=== PATIENT | female | born 1935 | race Caucasian/White ===

== ENCOUNTER → 2016-10-29 | Outpatient (CLI) | payer OTHER ==
[~2016-10-29] MED LIST: ASPI81TA28 PO; ATOR-24 PO; CALC-393 PO; CALCTAB5 PO; CHOL100010 PO; CHOL1CAP57 PO; CINN1CAP2 PO; DOCU-94 PO; FLAX100024 PO; GARL400T4 PO; LABE200T24 PO; LBT100 PO; LISI40TA PO; LORA10TA44 PO; LORA10TA5 PO; LPT40 PO; LSN40 PO; MULTTAB PO; OMEG10007 PO; OXYC1TAB3 PO; RANI150T2 PO; SENN-61 PO; TYLOTC500 PO; ULT/50 PO; VNTHFA/IN INH; ZNTT/150 PO
--- NOTE | 2016-10-29 14:23 | DIAGNOSTIC IMAGING REPORT ---
RIGHT HIP UNILATERAL 2 VIEWS CLINICAL HISTORY: M54.16 Lumbar [id number] Right pain COMPARISON: None. DISCUSSION: Mild degenerative change right hip joint space. No evidence for acetabular protrusion. No evidence for fracture or dislocation. There is no evidence for soft tissue swelling. IMPRESSION: Mild degenerative change. No acute process. Electronically signed by: Horacio Madrid M.D. 10/29/2016 2:21 PM Dictated Date/Time: 10/29/2016 2:21 PM
--- NOTE | 2016-10-29 15:04 | DIAGNOSTIC IMAGING REPORT ---
L-SPINE MIN 4 VIEWS ROUTINE CLINICAL HISTORY: Lumbar radiculopathy. COMPARISON: None FINDINGS: There is 4 mm anterolisthesis of L4 and L5. Vertebral body heights are maintained. There is no acute fracture. There is mild multilevel disc space narrowing and osteophytosis with moderate multilevel facet arthrosis. IMPRESSION: 1. No acute lumbar spine fracture. 2. Grade I anterolisthesis of L4 and L5 likely due to facet arthrosis. 2. Mild multilevel degenerative disc disease and moderate to severe multilevel facet arthrosis. Electronically signed by: Jefe Carvalho M.D. 10/29/2016 3:02 PM Dictated Date/Time: 10/29/2016 3:01 PM
== END | disposition home or self-care (01) ==
LOC: C.LABBC 13:39
PROVIDERS: ATTEND Internal Medicine Geriatric Medicine
DX: M54.16 Radiculopathy, lumbar region (principal); M53.86 Other specified dorsopathies, lumbar region

== ENCOUNTER 2017-01-25 21:07 | Emergency (ER) | payer OTHER ==
[~2017-01-25] VITALS: Ht 162.6 cm; Wt 89.0 kg
[~2017-01-25 21:07] MED LIST changes: -ASPI81TA28 PO; -CALC-393 PO; -CHOL1CAP57 PO; -DOCU-94 PO; -LBT100 PO; -LORA10TA5 PO; -LPT40 PO; -LSN40 PO; -OXYC1TAB3 PO; -RANI150T2 PO; -SENN-61 PO; -ULT/50 PO; -VNTHFA/IN INH
[2017-01-25 21:09] VITALS: TEMP 36.9; Ht 162.6 cm; Wt 89.0 kg
--- NOTE | 2017-01-25 22:04 | EMERGENCY ROOM VISIT NOTE ---
History Report prepared by Reyna: Pio Lora Under the Supervision of: Dr. Ritesh Godinez M.D. First contact with patient: 21:47 Chief Complaint: LEG PAIN,LEG INJURY Stated Complaint: PAIN IN RT LEG, CAN'T WALK History of Present Illness The patient is a 81 year old female who presents to the Emergency Room with complaints of right leg pain that started earlier today. She rates her pain as a 7/10 in severity. The patient states that her pain is located behind her knee and down her leg. She states that she was walking and accidentally twisted her ankle outward. The patient states that since the incident she has been experiencing right knee pain. She admits that she took Tylenol for the pain. The patient states that her knee pain is worsened with bending and walking. She admits to a history of an aneurysm. The patient denies any ankle pain. Source of History: patient Onset: today Position: leg (right), knee (right) Symptom Intensity: 7/10 Timing: constant Modifying Factors (Worsening): other (walking, bending knee) Modifying Factors (Relieving): tylenol Review of Systems See HPI for pertinent positives & negatives. A total of 10 systems reviewed and were otherwise negative. Past Medical & Surgical Medical Problems: (1) Dissecting aneurysm of thoracic aorta, Squire type B Family History Patient reports no known family medical history. Social History Smoking Status: Never Smoker Alcohol Use: none Housing Status: lives with family Occupation Status: retired Current/Historical Medications Scheduled Aspirin (Aspirin Ec), 81 MG PO DAILY Atorvastatin (Atorvastatin Calcium), 40 MG PO DAILY Calcium Carbonate (Calcium), 600 MG PO DAILY Cholecalciferol (Vitamin D3), 1,000 INTER.UNIT PO DAILY Docusate Sodium (Colace), 1 CAP PO BID Labetalol HCl (Labetalol HCl), 200 MG PO BID Lisinopril (Lisinopril), 40 MG PO DAILY Loratadine (Claritin), 10 MG PO DAILY Multivitamins/Minerals (Mvi With Minerals), 1 TAB PO DAILY Ranitidine HCl (Ranitidine HCl), 150 MG PO BID Senna (Senokot), 1 TAB PO HS Scheduled PRN Acetaminophen (Tylenol), 1,000 MG PO TID PRN for Pain or Fever Albuterol Hfa (Ventolin Hfa), 1-2 PUFFS INH Q4-6HRS PRN for SOB/Wheezing Oxycodone Immediate Rel Tab (Roxicodone Ir), 1-2 TAB PO Q4H PRN for Severe Pain Tramadol Hcl (Ultram), 50 MG PO DAILY PRN for Pain Allergies Coded Allergies: Clarithromycin (Verified Allergy, Unknown, UNKNOWN, 08/09/14) Hydrocodone (Verified Allergy, Unknown, UNKNOWN, 08/09/14) Meperidine (Verified Allergy, Unknown, UNKNOWN, 08/09/14) Tuberculin (Verified Allergy, Unknown, UNKNOWN, 08/02/14) Morphine (Unverified Adverse Reaction, Unknown, violent vomiting, 08/09/14) Physical Exam Vital Signs Date Time Temp Pulse Resp B/P (MAP) Pulse Ox O2 Delivery O2 Flow Rate FiO2 01/25/17 23:23 78 16 146/78 98 01/25/17 21:09 36.9 66 18 168/87 95 Room Air Physical Exam GENERAL: Patient is a healthy-appearing well-nourished 75 year old female HEAD: Normocephalic atraumatic EYES: Ocular movements intact pupils equal and react to light OROPHARYNX mucous membranes are moist no exudates present no erythema or edema present NECK: Supple no nuchal rigidity CHEST: Good equal expansion LUNGS: Clear and equal to auscultation CARDIAC: Normal S1 and S2 ABDOMEN: Soft nontender no guarding BACK: No CVA tenderness EXTREMITIES: No pain upon palpation normal muscle strength in all groups no clubbing cyanosis or edema NEURO: Patient is following commands and answering questions appropriately. Alert and oriented x3 Cranial Nerves 2-12 grossly intact Medical Decision & Procedures ER Provider Diagnostic Interpretation: Radiology results as stated below per my review and radiologist interpretation: X-ray results as stated below per interpretation by me and the radiologist: R KNEE 1 OR 2 VIEWS ROUTINE CLINICAL HISTORY: Pt c/o rt knee pain pain COMPARISON: None. DISCUSSION: The bones and joint spaces appear intact. There is no evidence of fracture, dislocation or bony disease. Moderate generalized degenerative change. No significant joint effusion. Moderate osteophytic change. IMPRESSION: Degenerative change. No acute process. The above report was generated using voice recognition software. It may contain grammatical, syntax or spelling errors. Electronically signed by: Horacio Madrid M.D. 01/25/2017 10:36 PM Dictated Date/Time: 01/25/2017 10:35 PM R VENOUS DOPP LOWER EXT UNILAT CLINICAL HISTORY: Pt c/o RLE swelling pain. Edema. TECHNIQUE: Venous Doppler COMPARISON STUDY: None FINDINGS: Normal study IMPRESSION: Normal study The above report was generated using voice recognition software. It may contain grammatical, syntax or spelling errors. Electronically signed by: Horacio Madrid M.D. 01/25/2017 10:54 PM Dictated Date/Time: 01/25/2017 10:54 PM Medications Administered Medications (Trade) Dose Ordered Sig/Lauro Route Start Time Stop Time Status Last Admin Dose Admin Oxycodone HCl (Roxicodone Immediate Rel 5MG Home Pack) 1 homepack UD ONCE PO 01/25/17 23:15 01/25/17 23:16 DC 01/25/17 23:15 1 HOMEPACK ED Course 2156: Past medical records reviewed. The patient was evaluated in room D06. A complete history and physical examination was performed. Medical Decision The differential diagnosis includes etiologies such as: fracture, dislocation, subluxation. This is a 81-year-old female who presents emergency department complaining of left knee pain. The patient has a normal physical examination. The patient is concerned about a blood clot however ultrasound does not show any evidence of a blood clot. I believe based on her exam that she most likely has a meniscus tear. I stressed the need to use the patient's walker and to follow-up with orthopedics. The patient was given oxycodone. Repeat examination revealed improvement patient's symptoms. Medication Reconcilliation Current Medication List: was personally reviewed by me Blood Pressure Screening Patient's blood pressure: Elevated blood pressure Blood pressure disposition: Referred to PCP Impression Primary Impression: Ankle pain, left Scribe Attestation The scribe's documentation has been prepared under my direction and personally reviewed by me in its entirety. I confirm that the note above accurately reflects all work, treatment, procedures, and medical decision making performed by me. Departure Information Dispostion Home / Self-Care Prescriptions Docusate Sodium (COLACE) 100 Mg Cap 1 CAP PO BID for 10 Days, #20 CAP Prov: Ritesh Godinez MD 01/25/17 Senna (Senokot) 8.6 Mg Tab 1 TAB PO HS for 10 Days, #10 TAB Prov: Ritesh Godinez MD 01/25/17 Oxycodone Immediate Rel Tab (ROXICODONE IR) 5 Mg Tab 1-2 TAB PO Q4H Y for Severe Pain, #14 TAB Prov: Ritesh Godinez MD 01/25/17 Referrals Mario Nugent M.D. (PCP) Patient Instructions My [facility] Problem Qualifiers Primary Impression: Ankle pain, left Chronicity: acute Qualified Codes: M25.572 - Pain in left ankle and joints of left foot
[2017-01-25] MEDS ORDERED: RANI150T2 PO (22:22)
[2017-01-25] MEDS ORDERED: LSN40 PO (22:22)
[2017-01-25] MEDS ORDERED: ULT/50 PO (22:22)
[2017-01-25] MEDS ORDERED: LPT40 PO (22:22)
[2017-01-25] MEDS ORDERED: LORA10TA5 PO (22:22)
[2017-01-25] MEDS ORDERED: VNTHFA/IN INH (22:22)
[2017-01-25] MEDS ORDERED: LBT100 PO (22:22)
[2017-01-25] MEDS ORDERED: CHOL1CAP57 PO (22:24)
[2017-01-25] MEDS ORDERED: CALC-393 PO (22:24)
[2017-01-25] MEDS ORDERED: ASPI81TA28 PO (22:25)
--- NOTE | 2017-01-25 22:37 | DIAGNOSTIC IMAGING REPORT ---
R KNEE 1 OR 2 VIEWS ROUTINE CLINICAL HISTORY: Pt c/o rt knee pain pain COMPARISON: None. DISCUSSION: The bones and joint spaces appear intact. There is no evidence of fracture, dislocation or bony disease. Moderate generalized degenerative change. No significant joint effusion. Moderate osteophytic change. IMPRESSION: Degenerative change. No acute process. The above report was generated using voice recognition software. It may contain grammatical, syntax or spelling errors. Electronically signed by: Horacio Madrid M.D. 01/25/2017 10:36 PM Dictated Date/Time: 01/25/2017 10:35 PM
--- NOTE | 2017-01-25 22:56 | DIAGNOSTIC IMAGING REPORT ---
R VENOUS DOPP LOWER EXT UNILAT CLINICAL HISTORY: Pt c/o RLE swelling pain. Edema. TECHNIQUE: Venous Doppler COMPARISON STUDY: None FINDINGS: Normal study IMPRESSION: Normal study The above report was generated using voice recognition software. It may contain grammatical, syntax or spelling errors. Electronically signed by: Horacio Madrid M.D. 01/25/2017 10:54 PM Dictated Date/Time: 01/25/2017 10:54 PM
[2017-01-25] MEDS ORDERED: OXYC1TAB3 PO (23:09)
[2017-01-25] MEDS ORDERED: SENN-61 PO (23:12)
[2017-01-25] MEDS ORDERED: DOCU-94 PO (23:12)
[2017-01-25] MEDS ORDERED: OXYCODONE IR HOME PACK PO ONE (23:15)
[2017-01-25 23:23] VITALS: BP 146/78; PULSE 78; O2SAT 98
== END 2017-01-25 23:23 | disposition home or self-care (01) ==
LOC: C.EDB 21:08 → C.EDA 23:23
DX: M25.572 Pain in left ankle and joints of left foot (principal); X50.1XXA Overexertion from prolonged static or awkward postures, initial encounter; Y92.9 Unspecified place or not applicable; I71.2 Thoracic aortic aneurysm, without rupture; Z79.82 Long term (current) use of aspirin; Z79.899 Other long term (current) drug therapy

== ENCOUNTER 2021-12-25 16:56 | Inpatient (IN) ==
[2021-12-25 18:06] LABS: Basophils # (auto) 0.08 K/uL (0-0.2); Basophils % (auto) 0.8 %; Eosinophils # (auto) 0.31 K/uL (0-0.50); Hematocrit (blood only) 41.5 % (34.1-44.9); Hemoglobin 13.6 g/dl (12.0-16.0); Lymphocytes # (auto) 2.39 K/uL (1.2-3.4); Lymphocytes % (auto) 23.1 %; Mean Corpuscular Hemoglobin 33.1 pg (25.0-34.0); Mean Corpuscular Hgb Conc 32.8 g/dL (32.0-36.0); Mean Platelet Volume 9.4 fL (9.4-12.3); Monocytes # (auto) 0.75 K/uL (0.24-0.82); Monocytes % (auto) 7.2 %; Neutrophils # (auto) 6.72 K/uL (1.4-6.5); Neutrophils % (auto) 64.9 %; Platelet Count 384 K/uL (130-400); RDW Standard Deviation 48.3 fL (36.4-46.3); Red Blood Count 4.11 M/uL (3.93-5.22); White Blood Count 10.35 K/ul (4.8-10.8)
--- NOTE | 2021-12-25 18:11 | XRay Report ---
XR chest 1V not portable HISTORY: Productive cough. Shortness of breath. COMPARISON: None. FINDINGS: No focal lung consolidations to suggest pneumonia. No evidence for pulmonary edema. The hea rt remains mildly enlarged. No pleural effusions. No pneumothorax. There is a calcified and mildly to rtuous thoracic aorta, unchanged. IMPRESSION: No significant change compared to the prior study. No acute process. ACT 112: Negative or not required by law. Electronically signed by: Rolo Gonzalez M.D. 12/25/2021 6:10 PM
[2021-12-25 18:18] LABS: Partial Thromboplastin Ratio 0.9; Prothrombin Time 10.9 Seconds (9.0-12.0)
[2021-12-25 18:35] LABS: Troponin I High Sensitivity 5.9 pg/ml (0-14)
[2021-12-25 18:41] LABS: Alanine Aminotransferase 12 U/L (7-52); Albumin Globulin Ratio 1.2 (0.9-2); Albumin Level 4.2 gm/dl (3.4-5.0); Alkaline Phosphatase 98 U/L (34-104); Anion Gap 12 (3-11); Aspartate Aminotransferase 13 U/L (13-39); BUN Creatinine Ratio 12.3 (10-20); Bilirubin,Total 1.2 mg/dl (0.2-1.0); Blood Urea Nitrogen 16 mg/dl (6-23); Calcium 10.6 mg/dl (8.5-10.1); Carbon Dioxide 27 mmol/L (21-32); Chloride 100 mmol/L (98-107); Est GFR (African American) 43.6 ml/min; Est GFR (Non-African American) 37.6 ml/min; Globulin 3.4 gm/dl (2.5-4.0); Glucose 180 mg/dl (70-99(Fasting)); Magnesium 1.6 mg/dl (1.7-2.4); Potassium 4.6 mmol/L (3.5-5.1); Sodium 139 mmol/L (136-145); Total Protein 7.6 gm/dl (6.0-8.3)
[2021-12-25] MEDS ORDERED: OPTIRAY 300 500mL IV ONE (20:41)
--- NOTE | 2021-12-25 21:40 | Emergency Department Note ---
History of Present Illness General Chief complaint: Shortness of Breath/Dyspnea Stated complaint: SOB, REF BY DOC Time Seen by Provider: 12/25/21 19:40 Source: patient Mode of arrival: ambulatory Limitations: no limitations History of Present Illness This patient is a 86-year-old female who is been short of breath for about 2 days. Is primarily dyspnea on exertion she is okay when she sits this also hurts when she moves although that is been chronic she has pain in her hands and right lower extremity mostly as well as the feet. She been seen by her doctor for this. She has had a cough with some darkish yellow phlegm at times. No chest pain or fever or chills. she did have COVID back in the end of October. She did not really have many symptoms with this she says. Denies abdominal pain. no chest pain. no palpitations. no pleurisy. no fever or chills no nausea vomiting. No fall or trauma, no blood or melena in her stool. no urinary symptoms. Home Medications Medication Instructions Recorded Confirmed Type acetaminophen 500 mg tablet 1,000 mg PO TID PRN fever #30 tabs 02/17/19 12/25/21 Rx (Tylenol Extra Strength) aspirin 81 mg tablet,delayed 81 mg PO DAILY #30 tabs 02/17/19 12/25/21 Rx release (Adult Low Dose Aspirin) calcium carbonate 600 mg-vitamin 1 tab PO DAILY #30 tabs 02/17/19 12/25/21 Rx D3 5 mcg (200 unit) tablet (Calcium 600 + D(3)) loratadine 10 mg tablet 10 mg PO DAILY #30 tabs 02/17/19 12/25/21 Rx multivitamin with iron 1 tab PO DAILY #30 tabs 02/17/19 12/25/21 Rx cholecalciferol (vitamin D3) 25 2,000 unit PO DAILY #60 caps 09/12/20 12/25/21 Rx mcg (1,000 unit) capsule fluticasone propionate 50 2 spray intranasal DAILY #16 grams 12/25/20 12/25/21 Rx mcg/actuation nasal spray,suspension (Flonase Allergy Relief) albuterol sulfate 90 mcg/actuation See Rx Instructions inhalation 03/25/21 12/25/21 Rx aerosol inhaler (Ventolin HFA) .COMPLEX PRN shortness of breath or wheezing #8.5 grams gabapentin 100 mg capsule 200 mg PO TID PRN pain #540 caps 06/25/21 12/25/21 Rx montelukast 10 mg tablet 10 mg PO DAILY #90 tabs 06/25/21 12/25/21 Rx (Singulair) furosemide 20 mg tablet (Lasix) 20 mg PO DAILY #90 tabs 07/30/21 12/25/21 Rx atorvastatin 40 mg tablet 40 mg PO DAILY #90 tabs 08/23/21 12/25/21 Rx lisinopril 40 mg tablet 40 mg PO DAILY #90 tabs 11/25/21 12/25/21 Rx labetalol 200 mg tablet 400 mg PO BID 90 days #360 tabs 12/03/21 12/25/21 Rx tramadol 50 mg tablet 50 mg PO Q8H PRN pain #30 tabs 12/03/21 12/25/21 Rx diclofenac sodium 1 % topical gel 2 g topical QID PRN Pain 12/25/21 12/25/21 History Allergies Allergy/AdvReac Type Severity Reaction Status Date / Time clarithromycin Allergy Unknown UNKNOWN Verified 12/25/21 15:26 hydrocodone Allergy Unknown UNKNOWN Verified 12/25/21 15:26 meperidine Allergy Unknown UNKNOWN Verified 12/25/21 15:26 tuberculin, purified protein Allergy Unknown UNKNOWN Verified 12/25/21 15:26 deriva fluticasone furoate Allergy dizziness, Verified 12/25/21 15:26 [From Breo Ellipta] upset stomach vilanterol Allergy dizziness, Verified 12/25/21 15:26 [From Breo Ellipta] upset stomach morphine AdvReac Unknown violent Unverified 12/25/21 15:26 vomiting Past Med/Surg History Medical History Anxiety Breast cancer Cataracts, bilateral Chronic dyspnea COVID-19 virus infection Dissecting aortic aneurysm, 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) Dry eye syndrome of both lacrimal glands Dyslipidemia Dyspnea on exertion Ectasia of artery Gastroesophageal reflux disease History of actinic keratosis History of 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) History of fracture of radius History of left breast cancer (1994) s/p L mastectomy, no further treatment History of right breast cancer (08/2014) s/p R mastectomy Hypertension Lower extremity edema Lumbar radiculopathy Osteoarthritis Physical deconditioning Severe needle phobia Sleep apnea Xerotic eczema Surgical History H/O wrist surgery S/P cataract surgery S/P left mastectomy (1994) S/P right mastectomy (08/09/14) Family History Daughter Hypertension Mother COPD (chronic obstructive pulmonary disease) Sister Breast cancer Father COPD (chronic obstructive pulmonary disease) Myocardial infarction Sister Uterine cancer Other Clotting disorder Denies family history of Ovarian cancer Prostate cancer Colorectal cancer Social History Smoking Status: Never smoker Second Hand Exposure: No; Hx Alcohol Use: No Hx Substance Use: No Preferred Language: Lebanese Communication Ability: Effective Visual Impairment: Partially Limited Hearing Ability: Normal Marker Delivery Required: No Beliefs That Will Affect Care: None marital status: / Current Living Situation: Alone Current Living Situation Comment: daughter lives locally current occupational status: retired current occupation: [employer], 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 caffeine: Yes during the past year weight has: remained stable Dental Care, Regularly: No Physical Activity Frequency: Does not Exercise Seatbelt Use: always Sunscreen Use: No Review of Systems A total of 10 systems reviewed and were otherwise negative Physical Exam Vital Signs Vital Signs - 24 hr 12/25/21 16:59 12/25/21 20:10 12/25/21 20:11 Temperature 36.6 C Temperature Source Temporal Artery Scan Pulse Rate 88 Pulse Rate [Finger] 70 Respiratory Rate 19 17 Respiratory Effort / Characteristics Non-Labored Spontaneous Non-Labored Spontaneous Respiratory Depth Normal Normal Blood Pressure 124/65 Blood Pressure [Right Arm] 129/71 Blood Pressure Mean 84 Blood Pressure Mean [Right Arm] 90 Blood Pressure Position [Right Arm] Sitting Pulse Oximetry 99 92 92 Oxygen Delivery Method Room Air Room Air Room Air Sepsis Recent Fever Within 48 Hours No Sepsis New/Unexplained Change in Mental Status N/A Sepsis Action Taken by Nursing No Action Required 12/25/21 20:11 12/25/21 22:18 12/26/21 00:06 Temperature Temperature Source Pulse Rate 70 Pulse Rate [Finger] 70 80 Respiratory Rate 17 17 18 Respiratory Effort / Characteristics Non-Labored Spontaneous Non-Labored Spontaneous Respiratory Depth Normal Normal Blood Pressure Blood Pressure [Right Arm] 130/73 146/96 H Blood Pressure Mean Blood Pressure Mean [Right Arm] 92 112 Blood Pressure Position [Right Arm] Lying Sitting Pulse Oximetry 92 91 93 Oxygen Delivery Method Room Air Room Air Room Air Sepsis Recent Fever Within 48 Hours Sepsis New/Unexplained Change in Mental Status Sepsis Action Taken by Nursing General: Well developed well nourished older female who appears in no acute distress, breathing comfortably on room air. Normal speech without increased work of breathing HEENT: Normal cephalic atraumatic. Pupils are equal round and reactive to light. Extraocular movements are intact. Oropharynx is pink with moist mucous membranes. No swelling of the mouth lips or tongue. Neck: Supple with a midline trachea. No meningeal signs or stiffness, no JVD or bruits. No Stridor. Chest: Clear to auscultation bilaterally. No wheezes or rhonchi. No increased work of breathing. Heart: Regular rate and rhythm without murmurs or gallops. Abdomen: Soft nontender, nondistended without rebound guarding or rigidity. Extremities: No cyanosis clubbing trace bilateral pedal edema. No calf tenderness or assymetry Spine/Back. Non tender to palpation. No CVA tenderness Skin: Good turgor without rashes. Neurologic exam: Cranial nerves two through 12 are intact. Motor and sensation are intact and symmetrical throughout. Course Administered Medications Heparin Sodium/Dextrose (Heparin Sodium/Dextrose) 25,000 units in 500 mls @ 24 mls/hr IV .[id number] [facility]; Protocol Stop: 01/24/22 23:14 Last Admin: 12/25/21 23:57 Dose: 1,200 units/hr, 24 mls/hr Documented By: CC Co-signed By: ERNESTO Discontinued Medications Heparin Sodium (Porcine) (Heparin Sod (Porcine) 1000 Unit/Ml) 1 units IV NOW ONE Stop: 12/25/21 23:11 Last Admin: 12/25/21 23:55 Dose: 5,000 units Documented By: CC Co-signed By: ERNESTO Lorazepam (Lorazepam 1 Mg Tab) 1 mg PO NOW STA Stop: 12/25/21 23:33 Last Admin: 12/25/21 23:40 Dose: 1 mg Documented By: CC Critical Care Time Critical Care Time: Yes Total Critical Care Time: 30 Due to the patient's shortness of breathwit subsequent pulmonary embolism diagn osis,need for IV heparin bolus and drip, consultations reassessment and discussions with the patient and family, I have personally spent greater than 30 minutes of critical care time in the direct management of this patient. This includes bedside care, interpretation of diagnostic studies, and testing, discussion with consultants, patient, and family members, and other required patient management activities. This 30 minutes is in excess of all separately billable procedures. Medical Decision Making Differential Diagnosis CHF, COPD, COVID, electrolyte or metabolic abnormality, pneumonia, PE, aortic pathology, bronchitis, anxiety Medical Records Attestation: I reviewed the patient's medical records. Home Medications Current Medication List: was personally reviewed by me Laboratory Data Attestation: I reviewed the patient's lab results. Result diagrams: 12/25/21 17:45 12/25/21 17:45 Lab Results 12/25/21 12/25/21 12/25/21 Range/Units 17:45 17:45 17:45 WBC 10.35 (4.8-10.8) K/ul RBC 4.11 (3.93-5.22) M/uL Hgb 13.6 (12.0-16.0) g/dl Hct 41.5 (34.1-44.9) % MCV 101.0 H (80.0-100.0) fL MCH 33.1 (25.0-34.0) pg MCHC 32.8 (32.0-36.0) g/dL RDW Std Deviation 48.3 H (36.4-46.3) fL RDW Coeff of Subhash 13.0 (11.5-14.5) % Plt Count 384 (130-400) K/uL MPV 9.4 (9.4-12.3) fL Immature Gran % (Auto) 1.0 % Neut % (Auto) 64.9 % Lymph % (Auto) 23.1 % [place] % (Auto) 7.2 % Eos % (Auto) 3.0 % Baso % (Auto) 0.8 % Neut # (Auto) 6.72 H (1.4-6.5) K/uL Lymph # (Auto) 2.39 (1.2-3.4) K/uL [place] # (Auto) 0.75 (0.24-0.82) K/uL Eos # (Auto) 0.31 (0-0.50) K/uL Baso # (Auto) 0.08 (0-0.2) K/uL Immature Gran # (Auto) 0.10 H (0.00-0.02) K/uL ESR (0-30) mm/hr PT 10.9 (9.0-12.0) Seconds INR 1.0 (0.9-1.1) APTT 25.0 (21.0-31.0) Seconds PTT Ratio 0.9 Sodium 139 (136-145) mmol/L Potassium 4.6 (3.5-5.1) mmol/L Chloride 100 (98-107) mmol/L Carbon Dioxide 27 (21-32) mmol/L Anion Gap 12 H (3-11) BUN 16 (6-23) mg/dl Creatinine 1.30 H (0.6-1.2) mg/dl Est Cr Clr Drug Dosing Not Reportable Est GFR ( Amer) 43.6 ml/min Est GFR (Non-Af Amer) 37.6 ml/min BUN/Creatinine Ratio 12.3 (10-20) Glucose 180 H (70-99(Fasting)) mg/dl Uric Acid (2.6-7.2) mg/dl Calcium 10.6 H (8.5-10.1) mg/dl Magnesium 1.6 L (1.7-2.4) mg/dl Total Bilirubin 1.2 H (0.2-1.0) mg/dl AST 13 (13-39) U/L ALT 12 (7-52) U/L Alkaline Phosphatase 98 (34-104) U/L Troponin I High Sens 5.9 (0-14) pg/ml C-Reactive Protein (0-0.5) mg/dl B-Natriuretic Peptide (0-100) pg/ml Total Protein 7.6 (6.0-8.3) gm/dl Albumin 4.2 (3.4-5.0) gm/dl Globulin 3.4 (2.5-4.0) gm/dl Albumin/Globulin Ratio 1.2 (0.9-2) SARS-CoV-2, RNA, NAAT (NEGATIVE) 12/25/21 12/25/21 12/25/21 Range/Units 17:45 17:45 17:45 WBC (4.8-10.8) K/ul RBC (3.93-5.22) M/uL Hgb (12.0-16.0) g/dl Hct (34.1-44.9) % MCV (80.0-100.0) fL MCH (25.0-34.0) pg MCHC (32.0-36.0) g/dL RDW Std Deviation (36.4-46.3) fL RDW Coeff of Subhash (11.5-14.5) % Plt Count (130-400) K/uL MPV (9.4-12.3) fL Immature Gran % (Auto) % Neut % (Auto) % Lymph % (Auto) % [place] % (Auto) % Eos % (Auto) % Baso % (Auto) % Neut # (Auto) (1.4-6.5) K/uL Lymph # (Auto) (1.2-3.4) K/uL [place] # (Auto) (0.24-0.82) K/uL Eos # (Auto) (0-0.50) K/uL Baso # (Auto) (0-0.2) K/uL Immature Gran # (Auto) (0.00-0.02) K/uL ESR 48 H (0-30) mm/hr PT (9.0-12.0) Seconds INR (0.9-1.1) APTT (21.0-31.0) Seconds PTT Ratio Sodium (136-145) mmol/L Potassium (3.5-5.1) mmol/L Chloride (98-107) mmol/L Carbon Dioxide (21-32) mmol/L Anion Gap (3-11) BUN (6-23) mg/dl Creatinine (0.6-1.2) mg/dl Est Cr Clr Drug Dosing Est GFR ( Amer) ml/min Est GFR (Non-Af Amer) ml/min BUN/Creatinine Ratio (10-20) Glucose (70-99(Fasting)) mg/dl Uric Acid 9.3 H (2.6-7.2) mg/dl Calcium (8.5-10.1) mg/dl Magnesium (1.7-2.4) mg/dl Total Bilirubin (0.2-1.0) mg/dl AST (13-39) U/L ALT (7-52) U/L Alkaline Phosphatase (34-104) U/L Troponin I High Sens (0-14) pg/ml C-Reactive Protein 2.15 H (0-0.5) mg/dl B-Natriuretic Peptide 67 (0-100) pg/ml Total Protein (6.0-8.3) gm/dl Albumin (3.4-5.0) gm/dl Globulin (2.5-4.0) gm/dl Albumin/Globulin Ratio (0.9-2) SARS-CoV-2, RNA, NAAT (NEGATIVE) 12/25/21 Range/Units Unknown WBC (4.8-10.8) K/ul RBC (3.93-5.22) M/uL Hgb (12.0-16.0) g/dl Hct (34.1-44.9) % MCV (80.0-100.0) fL MCH (25.0-34.0) pg MCHC (32.0-36.0) g/dL RDW Std Deviation (36.4-46.3) fL RDW Coeff of Subhash (11.5-14.5) % Plt Count (130-400) K/uL MPV (9.4-12.3) fL Immature Gran % (Auto) % Neut % (Auto) % Lymph % (Auto) % [place] % (Auto) % Eos % (Auto) % Baso % (Auto) % Neut # (Auto) (1.4-6.5) K/uL Lymph # (Auto) (1.2-3.4) K/uL [place] # (Auto) (0.24-0.82) K/uL Eos # (Auto) (0-0.50) K/uL Baso # (Auto) (0-0.2) K/uL Immature Gran # (Auto) (0.00-0.02) K/uL ESR (0-30) mm/hr PT (9.0-12.0) Seconds INR (0.9-1.1) APTT (21.0-31.0) Seconds PTT Ratio Sodium (136-145) mmol/L Potassium (3.5-5.1) mmol/L Chloride (98-107) mmol/L Carbon Dioxide (21-32) mmol/L Anion Gap (3-11) BUN (6-23) mg/dl Creatinine (0.6-1.2) mg/dl Est Cr Clr Drug Dosing Est GFR ( Amer) ml/min Est GFR (Non-Af Amer) ml/min BUN/Creatinine Ratio (10-20) Glucose (70-99(Fasting)) mg/dl Uric Acid (2.6-7.2) mg/dl Calcium (8.5-10.1) mg/dl Magnesium (1.7-2.4) mg/dl Total Bilirubin (0.2-1.0) mg/dl AST (13-39) U/L ALT (7-52) U/L Alkaline Phosphatase (34-104) U/L Troponin I High Sens (0-14) pg/ml C-Reactive Protein (0-0.5) mg/dl B-Natriuretic Peptide (0-100) pg/ml Total Protein (6.0-8.3) gm/dl Albumin (3.4-5.0) gm/dl Globulin (2.5-4.0) gm/dl Albumin/Globulin Ratio (0.9-2) SARS-CoV-2, RNA, NAAT NEGATIVE (NEGATIVE) Imaging Data Attestation: I personally reviewed and interpreted this imaging study as follows: My Impression: X-rayno acute infiltrate, failure, pneumothorax seen Radiologist's Impression: Chest X-Ray 12/25/21 17:02 XR chest 1V not portable HISTORY: Productive cough. Shortness of breath. COMPARISON: None. FINDINGS: No focal lung consolidations to suggest pneumonia. No evidence for pulmonary edema. The heart remains mildly enlarged. No pleural effusions. No pneumothorax. There is a calcified and mildly tortuous thoracic aorta, unchanged. IMPRESSION: No significant change compared to the prior study. No acute process. ACT 112: Negative or not required by law. Electronically signed by: Rolo Gonzalez M.D. 12/25/2021 6:[address] angio of the chest as well as abdomen. Please refer to stat rad report. No aortic dissection. She did have right-sided pulmonary embolisms with a large clot burden with some strain on the right heart ECG Data Attestation: I personally reviewed and interpreted this ECG as follows: Indication: + SOB/dyspnea Rate (beats per minute): 75 Rhythm: + normal sinus ECG Intervals/blocks: + Normal QRS, + Normal QT and + Normal AL ECG [place]: + Left axis deviation ECG ST segments: + Normal ST segments ECG Findings: no PACs or no PVCs Comparison ECG Date: from (08/01/14) Change: no significant change MDM Narrative She comes in as described above. She was placed on a cardiac cath technician in room C3. She has had shortness of breath but mostly dyspnea on exertion she has stable vital signs and not hypoxemic here her lungs are clear she is in no distress. She had COVID 2 months ago and would possibly still test positive. Chest x-ray was clear and does not show congestive heart failure pneumonia or pneumothorax EKG is unremarkable. Troponin is unremarkable and her symptoms will be atypical for cardiac disease. She has no significant electrolyte or metabolic abnormalities acutely. She has no elevation of her white count or fever to suggest infection. I did do a CTA to evaluate her for PE given her recent COVID infection and also further look at her lungs and her aorta given her remote history of aortic dissection she has no back pain or chest pain to suggest acute aortic dissection. Her family talk to me at length as the patient is severely needle phobic and we did get an IV in her and asked if we could order labs that they have been trying to get for her arthritis/rheumatoid ar thritis. I told her I be happy to do this although rheumatology often orders additional labs but way beyond what we do in the ED I did order the basic labs and I told her that some of them we could do off of the blood we juan david and others may be needed a restick. She said that she does not want to have any resticks but would consent to having the ones done that we could already do with the blood that we have. Her inflammatory markers were mildly elevated. Her CTA showed a large clot burden with multiple PEs on the right side with some mild heart strain. Despite this she was hemodynamically stable and not hypoxemic. I talked to the patient at length and explained this. She had no contrai ndications for heparin she is had no recent surgery or blood in her stool or trauma. I discussed this with Dr. Lerner from admitting team she agrees with giving the IV heparin bolus and hourly heparin. The patient will need to be admitted for further treatment and evaluation. Continuous cardiac monitoring: Orders placed in EMR for continuous cardiac monitoring. Upon my interpretion, she was noted to be in normal sinus rhythm with a rate of 77 Impression & Plan Pulmonary embolism, [place] (dyspnea on exertion), History of COVID-19, Lab test negative for COVID-19 virus Discharge Plan Visit Data Chief Complaint: Shortness of Breath/Dyspnea Stated Complaint: SOB, REF BY DOC ED Provider: Vel Ellis Discharge Problem: Pulmonary embolism, [place] (dyspnea on exertion), History of COVID-19, Lab test negative for COVID-19 virus Forms Stand Alone Forms: My [facility] Prescriptions Prescriptions: No Action albuterol sulfate [Ventolin HFA] 90 mcg/actuation HFA aerosol inhaler See Rx Instructions inhalation .COMPLEX PRN (Reason: shortness of breath or wheezing) Qty: 8.5 3RF Dose Instruction: 1-2 inhalation EVERY 4-6 HOURS PRN; Rx Instructions: 1-2 inhalation EVERY 4-6 HOURS PRN; furosemide [Lasix] 20 mg tablet 20 mg PO DAILY Qty: 90 1RF atorvastatin 40 mg tablet 40 mg PO DAILY Qty: 90 1RF lisinopril 40 mg tablet 40 mg PO DAILY Qty: 90 1RF aspirin [Adult Low Dose Aspirin] 81 mg tablet,delayed release (DR/EC) 81 mg PO DAILY Qty: 30 2RF calcium carbonate-vitamin D3 [Calcium 600 + D(3)] 600 mg(1,500mg) -200 unit tablet 1 tab PO DAILY Qty: 30 0RF loratadine 10 mg tablet 10 mg PO DAILY Qty: 30 0RF multivitamin with iron tablet 1 tab PO DAILY Qty: 30 0RF acetaminophen [Tylenol Extra Strength] 500 mg tablet 1,000 mg PO TID PRN (Reason: fever) Qty: 30 0RF montelukast [Singulair] 10 mg tablet 10 mg PO DAILY Qty: 90 3RF gabapentin 100 mg capsule 200 mg PO TID PRN (Reason: pain) Qty: 540 1RF tramadol 50 mg tablet 50 mg PO Q8H PRN (Reason: pain) Qty: 30 0RF labetalol 200 mg tablet 400 mg PO BID 90 Days Qty: 360 1RF fluticasone propionate [Flonase Allergy Relief] 50 mcg/actuation spray,suspension 2 spray INTNAS DAILY Qty: 16 1RF Rx Instructions: administer into each nostril cholecalciferol (vitamin D3) 25 mcg (1,000 unit) capsule 2,000 unit PO DAILY Qty: 60 3RF diclofenac sodium 1 % gel 2 g topical QID PRN (Reason: Pain) Rx Instructions: apply to single elbow, wrist or hand; for hand includes palm/fingers/back of hand Referrals Referrals: Dalila Vitale DO [Primary Care Provider] -
[2021-12-25 21:55] LABS: C Reactive Protein 2.15 mg/dl (0-0.5); Uric Acid 9.3 mg/dl (2.6-7.2)
[2021-12-25] MEDS ORDERED: Heparin IV Adult Wt-Based Standard WITH Bolus Protocol IV STA (22:55)
[2021-12-25] MEDS ORDERED: HEPARIN SOD (PORCINE) 1000 UNIT/ML IV ONE (23:10)
[2021-12-25] MEDS ORDERED: HEPARIN SODIUM/DEXTROSE 25,000 UNITS/500 ML BAG IV SCH (23:15)
--- NOTE | 2021-12-25 23:17 | History & Physical Report ---
Date of Service December 25, 2021 Assessment & Plan (1) Pulmonary embolism: Plan: 86yo female with a history of HTN, HLD, dissecting thoracic aortic aneurysm, and GERD presents with a two-day history of SOB and productive cough, then found on imaging to have pulmonary emboli. Pulmonary emboli, SOB, cough Patient found on CTA chest with pulmonary emboli VSS Heparin gtt started Admit to med/telemetry Incentive spirometry PT/OT Trend CBC, BMP, PT/INR HTN: continue home regimen HLD: continue home regimen GERD: continue home regimen FEN: heart-healthy diet Code status: full code DVT ppx: heparin gtt PT/OT: ordered Dispo: med/telemetry (2) Dyslipidemia: (3) Gastroesophageal reflux disease: (4) Hypertension: (5) Osteoarthritis: (6) Severe needle phobia: History of Present Illness Primary Care Provider: Dalila Vitale DO 86yo female with a history of HTN, HLD, dissecting thoracic aortic aneurysm, and GERD presents with a two-day history of SOB and productive cough. Symptoms began suddenly. Cough has been productive of yellow-dwaine sputum. Denies CP with and without inspiration. No additional symptoms. Patient denies fever, chills, headache, vision changes, palpitations, edema, abdominal pain, nausea, vomiting, dysuria, hematochezia, melena, lightheadedness, dizziness, numbness, tingling, weakness, or other symptoms. Denies recent illness and recent travel. Upon arrival, vitals were notable for hypoxia (88%) which improved without need for supplemental oxygen. BP not elevated, no tachycardia or tachypnea. patient afebrile. Initial labs were notable for elevated creatinine (1.3, baseline unknown), elevated ESR (48), elevated CRP (2.15), mild hyperbilirubinemia (1.2), and elevated uric acid (9.3). 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 Surrogate decision-maker in case of an emergency: Shelia Garay (cell: [phone]) Allergies Allergy/AdvReac Type Severity Reaction Status Date / Time clarithromycin Allergy Unknown UNKNOWN Verified 12/25/21 15:26 hydrocodone Allergy Unknown UNKNOWN Verified 12/25/21 15:26 meperidine Allergy Unknown UNKNOWN Verified 12/25/21 15:26 tuberculin, purified protein Allergy Unknown UNKNOWN Verified 12/25/21 15:26 deriva fluticasone furoate Allergy dizziness, Verified 12/25/21 15:26 [From Breo Ellipta] upset stomach vilanterol Allergy dizziness, Verified 12/25/21 15:26 [From Breo Ellipta] upset stomach morphine AdvReac Unknown violent Unverified 12/25/21 15:26 vomiting Home Medications Medication Instructions Recorded Confirmed Type acetaminophen 500 mg tablet 1,000 mg PO TID PRN fever #30 tabs 02/17/19 12/25/21 Rx (Tylenol Extra Strength) aspirin 81 mg tablet,delayed 81 mg PO DAILY #30 tabs 02/17/19 12/25/21 Rx release (Adult Low Dose Aspirin) calcium carbonate 600 mg-vitamin 1 tab PO DAILY #30 tabs 02/17/19 12/25/21 Rx D3 5 mcg (200 unit) tablet (Calcium 600 + D(3)) loratadine 10 mg tablet 10 mg PO DAILY #30 tabs 02/17/19 12/25/21 Rx multivitamin with iron 1 tab PO DAILY #30 tabs 02/17/19 12/25/21 Rx cholecalciferol (vitamin D3) 25 2,000 unit PO DAILY #60 caps 09/12/20 12/25/21 Rx mcg (1,000 unit) capsule fluticasone propionate 50 2 spray intranasal DAILY #16 grams 12/25/20 12/25/21 Rx mcg/actuation nasal spray,suspension (Flonase Allergy Relief) albuterol sulfate 90 mcg/actuation See Rx Instructions inhalation 03/25/21 12/25/21 Rx aerosol inhaler (Ventolin HFA) .COMPLEX PRN shortness of breath or wheezing #8.5 grams gabapentin 100 mg capsule 200 mg PO TID PRN pain #540 caps 06/25/21 12/25/21 Rx montelukast 10 mg tablet 10 mg PO DAILY #90 tabs 06/25/21 12/25/21 Rx (Singulair) furosemide 20 mg tablet (Lasix) 20 mg PO DAILY #90 tabs 07/30/21 12/25/21 Rx atorvastatin 40 mg tablet 40 mg PO DAILY #90 tabs 08/23/21 12/25/21 Rx lisinopril 40 mg tablet 40 mg PO DAILY #90 tabs 11/25/21 12/25/21 Rx labetalol 200 mg tablet 400 mg PO BID 90 days #360 tabs 12/03/21 12/25/21 Rx tramadol 50 mg tablet 50 mg PO Q8H PRN pain #30 tabs 12/03/21 12/25/21 Rx diclofenac sodium 1 % topical gel 2 g topical QID PRN Pain 12/25/21 12/25/21 History Past Med/Surg History Medical History Anxiety Breast cancer Cataracts, bilateral Chronic dyspnea COVID-19 virus infection Dissecting aortic aneurysm, 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) Dry eye syndrome of both lacrimal glands Dyslipidemia Dyspnea on exertion Ectasia of artery Gastroesophageal reflux disease History of actinic keratosis History of 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) History of fracture of radius History of left breast cancer (1994) s/p L mastectomy, no further treatment History of right breast cancer (08/2014) s/p R mastectomy Hypertension Lower extremity edema Lumbar radiculopathy Osteoarthritis Physical deconditioning Severe needle phobia Sleep apnea Xerotic eczema Surgical History H/O wrist surgery S/P cataract surgery S/P left mastectomy (1994) S/P right mastectomy (08/09/14) Family History Daughter Hypertension Mother COPD (chronic obstructive pulmonary disease) Sister Breast cancer Father COPD (chronic obstructive pulmonary disease) Myocardial infarction Sister Uterine cancer Other Clotting disorder Denies family history of Ovarian cancer Prostate cancer Colorectal cancer Social History Smoking Status: Never smoker Second Hand Exposure: No; Hx Alcohol Use: No Hx Substance Use: No Preferred Language: Malaysian Communication Ability: Effective Visual Impairment: Partially Limited Hearing Ability: Normal Banking Pin Adjuster Required: No Beliefs That Will Affect Care: None marital status: / Current Living Situation: Alone Current Living Situation Comment: daughter lives locally current occupational status: retired current occupation: [employer], 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 caffeine: Yes during the past year weight has: remained stable Dental Care, Regularly: No Physical Activity Frequency: Does not Exercise Seatbelt Use: always Sunscreen Use: No Physical Exam Physical Exam: Constitutional: well-appearing, no acute distress HEENT: NCAT, no conjunctival injection CV: regular rhythm, no murmur appreciated, extremities well-perfused, no LE edema Resp: CTABL, no wheezes/rales/rhonchi appreciated, no increased work of breathing GI: soft, nondistended, nontender, BS normoactive MSK: no gross deformities appreciated Skin: warm, dry, no rash appreciated Neuro: alert, oriented, no focal neurologic deficit appreciated Results & Data Results & Data ([facility]) Vital Signs (Past 12 Hours) Vital Signs Temp Pulse Pulse Resp BP BP Pulse Ox 12/25/21 22:18 70 17 130/73 91 12/25/21 20:11 70 17 92 12/25/21 20:11 92 12/25/21 20:10 70 17 129/71 92 12/25/21 16:59 36.6 C 88 19 124/65 99 O2 Del Method 12/25/21 22:18 Room Air 12/25/21 20:11 Room Air 12/25/21 20:11 Room Air 12/25/21 20:10 Room Air 12/25/21 16:59 Room Air Supervising Physician Co-Signing Physician Notes Patient seen and examined, chart reviewed, case discussed with Dr. Paz and I agree with the assessment and plan as above. In brief, patient is an 86yo female presenting with extensive right PE. HD stable. No hypoxia. Remote history of cancer On exam she is afebrile, HD stable, NAD Skin - warm, dry, intact, no rashes/lesions HEENT - NC/AT, PERRL, MMM Heart - +S1/S2, regular Lungs- CTA Abd - soft, ND/NT Ext - no edema Labs and images reviewed Assessment/Plan Acute PE, patient HD stable with adequate oxygenation -Heparin gtt --> NOAC in AM -Remainder as above Resident Activity Tracking Resident Involvement: Resident Care Provided and Machine Operator Hay Stacker Coverage Note Care Provided: Adult Hospital Medicine (1) Pulmonary embolism Acute cor pulmonale presence: unspecified Chronicity: acute Pulmonary embolism type: unspecified Qualified Code(s): I26.99 - Other pulmonary embolism without acute cor pulmonale
[2021-12-25] MEDS ORDERED: LORazepam 1 MG TAB PO STA (23:32)
[2021-12-25] MEDS ORDERED: ALBUTEROL HFA 8 GM INHALER INH PRN (23:54)
[2021-12-25] MEDS ORDERED: ONDANSETRON INJ 2 MG/ML 2 ML VIAL IV PRN (23:56)
[2021-12-26] MEDS: LABETALOL HCL 200 MG TAB PO SCH ×3 (00:49→21:46)
--- NOTE | 2021-12-26 01:45 | Billing Data ---
Date of Service December 25, 2021 Coding Level of Care Code 38119 Initial Inpt Care Lvl 3
[2021-12-26 06:41] LABS: Hematocrit (blood only) 38.6 % (34.1-44.9); Hemoglobin 12.7 g/dl (12.0-16.0); Mean Corpuscular Hemoglobin 32.5 pg (25.0-34.0); Mean Corpuscular Hgb Conc 32.9 g/dL (32.0-36.0); Mean Corpuscular Volume 98.7 fL (80.0-100.0); Mean Platelet Volume 9.7 fL (9.4-12.3); Platelet Count 354 K/uL (130-400); RDW Coefficient of Variation 13.1 % (11.5-14.5); RDW Standard Deviation 46.7 fL (36.4-46.3); Red Blood Count 3.91 M/uL (3.93-5.22)
[2021-12-26 06:54] LABS: INR 1.1 (0.9-1.1); Prothrombin Time 11.3 Seconds (9.0-12.0)
[2021-12-26 06:56] LABS: Partial Thromboplastin Ratio 1.6
[2021-12-26 07:13] LABS: BUN Creatinine Ratio 12.4 (10-20); Creatinine Clr Calc Pharmacy 34.9 ml/min; Potassium 4.4 mmol/L (3.5-5.1)
[2021-12-26] MEDS ORDERED: FUROSEMIDE 20 MG TAB PO SCH (09:00)
[2021-12-26] MEDS ORDERED: lisinopril 40 MG TAB PO SCH (09:00)
[2021-12-26] MEDS: MONTELUKAST SODIUM 10 MG TABLET PO SCH (09:06)
[2021-12-26] MEDS: ASPIRIN 81 MG ECTAB PO SCH (09:06)
[2021-12-26] MEDS: LORATADINE 10 MG TAB PO SCH (09:07)
[2021-12-26] MEDS: ATORVASTATIN 40 MG TAB PO SCH (09:08)
[2021-12-26] MEDS: FLUTICASONE PROPIONATE NA SPR 16 GM BTL SCH (09:08)
--- NOTE | 2021-12-26 09:52 | Hospitalist Progress Note ---
Date of Service December 26, 2021 Assessment & Plan (1) Pulmonary embolism: Plan: 86yo female with a history of HTN, HLD, dissecting thoracic aortic aneurysm, and GERD presents with a two-day history of SOB and productive cough, then found on imaging to have pulmonary emboli. Pulmonary emboli, SOB, cough Patient found on CTA chest with pulmonary emboli does have CTa with right heart strain, with stable vital signs will transition to Eliquis, Incentive spirometry PT/OT Trend CBC, BMP, PT/INR HTN: PT slightly lower will reduce lisinopril dose, and hold lasix, continue labetolol, this held in am by nursing but extra dose ordered in afternoon HLD: continue home regimen GERD: continue home regimen Headache will use tylonol FEN: heart-healthy diet Code status: full code (2) Dyslipidemia: (3) Gastroesophageal reflux disease: (4) Hypertension: (5) Osteoarthritis: (6) Severe needle phobia: Admission and Anticipated Discharge Date Admission Date: December 25, 2021 Subjective Pt was seen in the company of her daughter, she complains of some shortness of breath with ambulation, has had some radicular leg pain that has limited am bulation, but later c/o a generalized headache, Review of Systems Review of Systems: Mild distress and fatigue generalized headache, no visual changes no speech or swallowing issues no chest pain, pressure or palpitations exertional and conversational shortness of breath, no cough or wheezes no abdominal pain, nausea or vomiting, diarrhea or constipation no dysuria, hematuria or frequency no focal joint pain or swelling no back pain, CVA tenderness some right leg pain the originates from the buttock no bruising, bleeding or rashes no focal signs of weakness or numbness or altered sensation no complaints of anxiety or depression.. Physical Exam Physical Exam: The patient appeared well nourished and normally developed. Vital signs as documented. Head exam is normocephalic atraumatic Neck is without JVD, thyromegaly, or carotid bruits. Lungs are clear to auscultation, no focal loss of breath sounds Cardiac exam, Rhythm is regular.. No murmurs, rubs or gallops. Abdominal exam reveals normal bowel sounds, soft non tender, no masses Extremities are nonedematous and both pedal pulses are present there are no chords, or calf pain and negative pain to SLR Neurologic exam is alert and oriented, no focal loss of strength or sensation Skin is without bruises or rashes Psychologically is without concerns for anxiety or depression.. Results & Data Results & Data ([facility]) Vital Signs (Past 12 Hours) Vital Signs Pulse Resp BP Pulse Ox O2 Del Method 12/26/21 09:04 74 20 97/59 L 93 12/26/21 07:49 64 20 105/58 L 92 12/26/21 06:26 71 20 115/70 92 Room Air 12/26/21 04:04 122/76 12/26/21 03:49 70 17 96/60 L 91 Room Air 12/26/21 02:45 66 18 91/51 L 96 Room Air 12/26/21 00:48 81 18 127/82 93 Room Air 12/26/21 00:06 80 18 146/96 H 93 Room Air 12/25/21 22:18 70 17 130/73 91 Room Air PG Care Time/CCT Total # of Minutes Spent Total Time Spent with Patient: Total time spent is greater than 50% in coordination of care (as documented) at patient's floor/unit and/or counseling patient: Coding Level of Care Code 83946 Subseq Hosp Care Lvl 3 Diagnoses Pulmonary embolism I26.99 Acute cor pulmonale presence: unspecified Chronicity: acute Pulmonary embolism type: unspecified Dyslipidemia E78.5 Gastroesophageal reflux disease K21.9 Hypertension I10 Osteoarthritis M19.90 Severe needle phobia F40.231 (1) Pulmonary embolism Acute cor pulmonale presence: unspecified Chronicity: acute Pulmonary embolism type: unspecified Qualified Code(s): I26.99 - Other pulmonary embolism without acute cor pulmonale
--- NOTE | 2021-12-26 10:32 | CT Scan Report ---
CT ANGIOGRAPHY OF THE CHEST DISSECTION PROTOCOL CLINICAL HISTORY: Chest pain. Possible dissection or pulmonary embolus. COMPARISON STUDY: Chest radiograph performed earlier today. Chest CT January 02, 2011. TECHNIQUE: Before and following the IV administration of 114 mL of Optiray, helical axial images of t he chest were obtained. Maximal intensity projections and sagittal and coronal reformats were viewed on an independent 3D workstation. IV contrast was administered without complication. Automated exp osure control was utilized for the study. A dose lowering technique was utilized adhering to the meagan Echavarria. CT DOSE: 1849.01 mGy.cm FINDINGS: There is no thoracic aortic dissection. Intramural hematoma shown on CT of January 02 11 has resolved. Moderate cardiomegaly is noted. There is no pericardial effusion. Note is made of ex tensive right-sided pulmonary emboli, including emboli within the right pulmonary artery. These embol i extending into the lobar and segmental branches of the right lung. Emboli are suboptimally assessed given suboptimal opacification. There is dilatation the right ventricle with straightening of the in terventricular septum. This suggests right heart strain. No pneumothorax or pleural effusion is prese nt. No pulmonary infarct is present. Subpleural opacities favor atelectasis. No acute fracture within the bony thorax. Abdomen and pelvis will be reported separately. IMPRESSION: 1. Extensive right-sided pulmonary emboli, including emboli within the right pulmonary artery. CT fin dings suggestive of right heart strain. 2. No thoracic aortic dissection. ACT 112: Negative or not required by law. Electronically signed by: Jefe Carvalho M.D. 12/26/2021 10:30 AM
--- NOTE | 2021-12-26 10:43 | CT Scan Report ---
CT angio abdomen pelvis w con CLINICAL HISTORY: aortic dissec TECHNIQUE: Multidetector row helical CT of the abdomen and pelvis was performed, following intravenou s administration of iodinated contrast. No oral contrast was administered. Automated dose lowering te chniques and/or adjustment according to patient size were utilized for this exam. Coronal and sagitta l reformations were obtained. MIP and 3D volume rendered reconstructions were obtained. Comparison: None available at the time of this dictation. FINDINGS: Lower chest: For findings above the diaphragm, please see CT chest performed same day. Liver: Unremarkable. No focal lesions are seen. Gallbladder and biliary tree: No calcified gallstones. Normal caliber wall. No intra- or extrahepatic biliary ductal dilation. Pancreas: Unremarkable, no focal lesions. Spleen: Unremarkable. Adrenals: Unremarkable. Kidneys and ureters: Unremarkable. Bladder: Unremarkable. Reproductive organs: Intravaginal device is noted. Bowel: Diverticulosis is seen without evidence of diverticulitis. The appendix is normal. Lymph nodes Retroperitoneal: Unremarkable. Pelvic: Unremarkable. Mesenteric: Unremarkable. Peritoneum: Normal. Abdominal wall: Unremarkable. Bones: Degenerative changes in the visualized spine. CT angiogram: No aortic dissection is seen. There is a tiny aneurysm of the distal abdominal aorta me asuring up to 23 mm in diameter. No significant atherosclerosis is seen. There is abrupt curvature of the celiac axis near its origin with poststenotic dilation to 14 mm. Thi s may represent median arcuate ligament syndrome. The origins of the superior mesenteric artery and r enal arteries are unremarkable. IMPRESSION: 1. No evidence of aortic dissection or significant aneurysm. Intramural hematoma seen on CT of 011 has resolved. 2. Abrupt curvature in post stenotic dilation of the celiac artery may represent median arcuate liga ment syndrome. Correlation with physical exam is recommended. ACT 112: Negative or not required by law. Electronically signed by: Cliff Barnes M.D. 12/26/2021 10:41 AM
[2021-12-26] MEDS ORDERED: LABETALOL HCL 100 MG TAB PO ONE (11:51)
[2021-12-26] MEDS: APIXABAN 5 MG TABLET PO SCH ×2 (12:54→21:46)
--- NOTE | 2021-12-26 16:12 | Electrocardiogram Report ---
Test Reason : Blood Pressure : / mmHG Vent. Rate : 075 BPM Atrial Rate : 075 BPM P-R Int : 184 ms QRS Dur : 082 ms QT Int : 366 ms P-R-T Axes : 020 -31 020 degrees QTc Int : 408 ms Poor data quality, interpretation may be adversely affected Normal sinus rhythm Left axis deviation Possible Old Anterolateral infarct Nonspecific T wave abnormality Anterior leads Abnormal ECG When compared with ECG of 01-AUG-2014 14:44, Criteria for Anterolateral infarct are now Present Inverted T waves have replaced nonspecific T wave abnormality in Anterior leads Confirmed by Jerome Neil ([id number]) on 12/26/2021 4:12:33 PM Referred By: Dalila Vitale Confirmed By:Jerome Neil
[2021-12-26] MEDS: ACETAMINOPHEN 500 MG TAB PO PRN (16:58)
[2021-12-27] MEDS ORDERED: LORazepam 1 MG TAB SL STA (04:41)
--- NOTE | 2021-12-27 07:33 | Hospitalist Progress Note ---
Date of Service December 27, 2021 Assessment & Plan (1) Pulmonary embolism: Plan: 86yo female with a history of HTN, HLD, dissecting thoracic aortic aneurysm, and GERD presents with a two-day history of SOB and productive cough, then found on imaging to have pulmonary emboli. Pulmonary emboli, SOB, cough Patient found on CTA chest with pulmonary emboli does have CTa with right heart strain, with stable vital signs will transition to Eliquis, Incentive spirometry PT/OT Trend CBC, BMP, PT/INR Foot pain possible gout, pt states reminds her of gout, did have elevated uric acid in the past. one dose of colchicine HTN: PT slightly lower will reduce lisinopril dose, and hold lasix, continue labetolol, this held in am by nursing but extra dose ordered in afternoon HLD: continue home regimen GERD: continue home regimen Headache will use tylonol FEN: heart-healthy diet Code status: full code (2) Dyslipidemia: (3) Gastroesophageal reflux disease: (4) Hypertension: (5) Osteoarthritis: (6) Severe needle phobia: Admission and Anticipated Discharge Date Admission Date: December 25, 2021 Subjective pt has been having some foot pain reminiscent of her prevous gout no issues with shortness of breath at this time Review of Systems Review of Systems: Mild distress and fatigue generalized headache, no visual changes no speech or swallowing issues no chest pain, pressure or palpitations exertional and conversational shortness of breath, no cough or wheezes no abdominal pain, nausea or vomiting, diarrhea or constipation no dysuria, hematuria or frequency no focal joint pain or swelling no back pain, CVA tenderness some right leg pain the originates from the buttock no bruising, bleeding or rashes no focal signs of weakness or numbness or altered sensation no complaints of anxiety or depression.. Physical Exam Physical Exam: The patient appeared well nourished and normally developed. Vital signs as documented. Head exam is normocephalic atraumatic Neck is without JVD, thyromegaly, or carotid bruits. Lungs are clear to auscultation, no focal loss of breath sounds Cardiac exam, Rhythm is regular.. No murmurs, rubs or gallops. Abdominal exam reveals normal bowel sounds, soft non tender, no masses Extremities are nonedematous and both pedal pulses are present there are no chords, or calf pain and negative pain to SLR Neurologic exam is alert and oriented, no focal loss of strength or sensation Skin is without bruises or rashes Psychologically is without concerns for anxiety or depression.. Results & Data Results & Data ([facility]) Vital Signs (Past 12 Hours) Vital Signs Temp Pulse Pulse Resp BP Pulse Ox O2 Del Method 12/27/21 07:02 66 12/27/21 04:08 98.6 F 72 16 104/60 93 Room Air 12/26/21 22:25 72 12/26/21 21:00 Room Air 12/26/21 23:19 98.4 F 71 16 100/61 91 Room Air 12/26/21 21:45 96 H 104/61 PG Care Time/CCT Total # of Minutes Spent Total Time Spent with Patient: Total time spent is greater than 50% in coordination of care (as documented) at patient's floor/unit and/or counseling patient: Coding Level of Care Code 93592 Subseq Hosp Care Lvl 2 Diagnoses Pulmonary embolism I26.99 Acute cor pulmonale presence: unspecified Chronicity: acute Pulmonary embolism type: unspecified Dyslipidemia E78.5 Gastroesophageal reflux disease K21.9 Hypertension I10 Osteoarthritis M19.90 Severe needle phobia F40.231 (1) Pulmonary embolism Acute cor pulmonale presence: unspecified Chronicity: acute Pulmonary embolism type: unspecified Qualified Code(s): I26.99 - Other pulmonary embolism without acute cor pulmonale
[2021-12-27] MEDS: LABETALOL HCL 200 MG TAB PO SCH (08:31)
[2021-12-27] MEDS: APIXABAN 5 MG TABLET PO SCH ×2 (08:31→20:43)
[2021-12-27] MEDS: ATORVASTATIN 40 MG TAB PO SCH (08:32)
[2021-12-27] MEDS ORDERED: lisinopril 20 MG TAB PO SCH (09:00)
[2021-12-27] MEDS: lisinopril 10 MG TAB PO SCH (09:23)
[2021-12-27] MEDS: LORATADINE 10 MG TAB PO SCH (09:23)
[2021-12-27] MEDS: LABETALOL HCL 100 MG TAB PO SCH ×2 (09:23→20:43)
[2021-12-27] MEDS: MONTELUKAST SODIUM 10 MG TABLET PO SCH (09:24)
[2021-12-27] MEDS: FLUTICASONE PROPIONATE NA SPR 16 GM BTL SCH (09:24)
[2021-12-27] MEDS: ASPIRIN 81 MG ECTAB PO SCH (09:24)
[2021-12-27] MEDS: ACETAMINOPHEN 500 MG TAB PO PRN ×2 (11:52→17:52)
[2021-12-27] MEDS: GABAPENTIN 100 MG CAP PO PRN ×2 (13:26→21:03)
[2021-12-27] MEDS: traMADol HCL 50 MG TABLET PO PRN (14:30)
[2021-12-27] MEDS ORDERED: COLCHICINE 0.6 MG TAB PO ONE (15:00)
[2021-12-27 17:02] LABS: Anti Nuclear Antibody Screen NEGATIVE (NEGATIVE); Rheumatoid Factor <14 IU/mL (<14)
[2021-12-28] MEDS: traMADol HCL 50 MG TABLET PO PRN ×2 (06:07→17:35)
[2021-12-28] MEDS: ACETAMINOPHEN 500 MG TAB PO PRN ×2 (08:05→22:14)
[2021-12-28] MEDS: lisinopril 10 MG TAB PO SCH (08:06)
[2021-12-28] MEDS: MONTELUKAST SODIUM 10 MG TABLET PO SCH (08:06)
[2021-12-28] MEDS: APIXABAN 5 MG TABLET PO SCH ×2 (08:06→21:05)
[2021-12-28] MEDS: LABETALOL HCL 100 MG TAB PO SCH ×2 (08:06→21:05)
[2021-12-28] MEDS: LORATADINE 10 MG TAB PO SCH (08:07)
[2021-12-28] MEDS: FLUTICASONE PROPIONATE NA SPR 16 GM BTL SCH (08:07)
[2021-12-28] MEDS: ASPIRIN 81 MG ECTAB PO SCH (08:07)
[2021-12-28] MEDS: ATORVASTATIN 40 MG TAB PO SCH (08:07)
[2021-12-28] MEDS: GABAPENTIN 100 MG CAP PO PRN (13:05)
--- NOTE | 2021-12-28 17:27 | Hospitalist Progress Note ---
Date of Service December 28, 2021 Assessment & Plan (1) Pulmonary embolism: Plan: 86yo female with a history of HTN, HLD, dissecting thoracic aortic aneurysm, and GERD presents with a two-day history of SOB and productive cough, then found on imaging to have pulmonary emboli. Pulmonary emboli, SOB, cough Patient found on CTA chest with pulmonary emboli does have CTa with right heart strain, with stable vital signs will transition to Eliquis, Incentive spirometry PT/OT Trend CBC, BMP, PT/INR Foot pain possible gout, pt states reminds her of gout, did have elevated uric acid in the past. one additional dose of colchicine, added ultram for pain HTN: PT slightly lower will reduce lisinopril dose, and hold lasix, continue labetolol, this held in am by nursing but extra dose ordered in afternoon HLD: continue home regimen GERD: continue home regimen Headache will use Tylenol FEN: heart-healthy diet Code status: full code (2) Dyslipidemia: (3) Gastroesophageal reflux disease: (4) Hypertension: (5) Osteoarthritis: (6) Severe needle phobia: Admission and Anticipated Discharge Date Admission Date: December 25, 2021 Subjective pt has been having some foot pain reminiscent of her prevous gout, however no real help from colchicine and not in typical gout location no issues with shortness of breath at this time Review of Systems Review of Systems: Mild distress and fatigue generalized headache, no visual changes no speech or swallowing issues no chest pain, pressure or palpitations exertional and conversational shortness of breath, no cough or wheezes no abdominal pain, nausea or vomiting, diarrhea or constipation no dysuria, hematuria or frequency no focal joint pain or swelling no back pain, CVA tenderness some right leg pain the originates from the buttock no bruising, bleeding or rashes her foot looks normal but states painful to touch no focal signs of weakness or numbness or altered sensation no complaints of anxiety or depression.. Physical Exam Physical Exam: The patient appeared well nourished and normally developed. Vital signs as documented. Head exam is normocephalic atraumatic Neck is without JVD, thyromegaly, or carotid bruits. Lungs are clear to auscultation, no focal loss of breath sounds Cardiac exam, Rhythm is regular.. No murmurs, rubs or gallops. Abdominal exam reveals normal bowel sounds, soft non tender, no masses Extremities are nonedematous and both pedal pulses are present there are no chords, or calf pain and negative pain to SLR Neurologic exam is alert and oriented, no focal loss of strength or sensation Skin is without bruises or rashes Psychologically is without concerns for anxiety or depression.. Results & Data Results & Data ([facility]) Vital Signs (Past 12 Hours) Vital Signs Temp Pulse Pulse Resp BP Pulse Ox O2 Del Method 12/28/21 16:18 98.2 F 73 16 100/64 95 Room Air 12/28/21 15:21 67 12/28/21 07:00 83 12/28/21 11:57 Room Air 12/28/21 11:49 98.6 F 72 18 97/64 L 92 Room Air 12/28/21 08:12 99.1 F 80 20 108/70 90 Room Air 12/28/21 08:02 99.0 F 80 18 120/66 90 Room Air PG Care Time/CCT Total # of Minutes Spent Total Time Spent with Patient: Total time spent is greater than 50% in coordination of care (as documented) at patient's floor/unit and/or counseling patient: Coding Level of Care Code 55093 Subseq Hosp Care Lvl 2 Diagnoses Pulmonary embolism I26.99 Acute cor pulmonale presence: unspecified Chronicity: acute Pulmonary embolism type: unspecified Dyslipidemia E78.5 Gastroesophageal reflux disease K21.9 Hypertension I10 Osteoarthritis M19.90 Severe needle phobia F40.231 (1) Pulmonary embolism Acute cor pulmonale presence: unspecified Chronicity: acute Pulmonary embolism type: unspecified Qualified Code(s): I26.99 - Other pulmonary embolism without acute cor pulmonale
[2021-12-29] MEDS: traMADol HCL 50 MG TABLET PO PRN ×2 (08:18→21:20)
[2021-12-29] MEDS: APIXABAN 5 MG TABLET PO SCH ×2 (08:19→20:50)
[2021-12-29] MEDS: lisinopril 10 MG TAB PO SCH (08:19)
[2021-12-29] MEDS: ATORVASTATIN 40 MG TAB PO SCH (08:19)
[2021-12-29] MEDS: ASPIRIN 81 MG ECTAB PO SCH (08:19)
[2021-12-29] MEDS: LABETALOL HCL 100 MG TAB PO SCH ×2 (08:19→20:50)
[2021-12-29] MEDS: MONTELUKAST SODIUM 10 MG TABLET PO SCH (08:19)
[2021-12-29] MEDS: FLUTICASONE PROPIONATE NA SPR 16 GM BTL SCH (08:20)
[2021-12-29] MEDS: LORATADINE 10 MG TAB PO SCH (08:20)
[2021-12-29] MEDS ORDERED: methylPREDNISolone 125 MG in SYRINGE 0 ML IV ONE (10:33)
--- NOTE | 2021-12-29 16:40 | Hospitalist Progress Note ---
Date of Service December 29, 2021 Assessment & Plan (1) Pulmonary embolism: Plan: 86yo female with a history of HTN, HLD, dissecting thoracic aortic aneurysm, and GERD presents with a two-day history of SOB and productive cough, then found on imaging to have pulmonary emboli. Pulmonary emboli, SOB, cough Patient found on CTA chest with pulmonary emboli does have CTa with right heart strain, with stable vital signs will transition to Eliquis Incentive spirometry PT/OT Foot pain possible gout, pt states reminds her of gout, did have elevated uric acid 12/25/21. did not improve with colchicine x2 now moving to steroids HTN: PT slightly lower did reduce lisinopril dose, and holding lasix, continue labetolol, this held in am by nursing but extra dose ordered in afternoon HLD: continue home regimen GERD: continue home regimen Headache will use Tylenol FEN: heart-healthy diet Code status: full code (2) Dyslipidemia: (3) Gastroesophageal reflux disease: (4) Hypertension: (5) Osteoarthritis: (6) Severe needle phobia: Admission and Anticipated Discharge Date Admission Date: December 25, 2021 Subjective this pt is mostly complaining about her foot pain, with history of gout and elevated uric acid did use some steroids 12/29 no issues with sob or chest pain Review of Systems Review of Systems: Mild distress and fatigue no headache, no visual changes no speech or swallowing issues no chest pain, pressure or palpitations no shortness of breath, cough or wheezes no abdominal pain, nausea or vomiting, diarrhea or constipation no dysuria, hematuria or frequency despite bunions, pt does not have toe pain but rather pain on top of foot and inankle area no back pain, CVA tenderness or radicular pain there is minor redness to tops and outside margin of feet no on soles no focal signs of weakness or numbness or altered sensation no complaints of anxiety or depression.. Physical Exam Physical Exam: The patient appeared well nourished and normally developed. Vital signs as documented. Head exam is normocephalic atraumatic Neck is without JVD, thyromegaly, or carotid bruits. Lungs are clear to auscultation, no focal loss of breath sounds Cardiac exam, Rhythm is regular.. No murmurs, rubs or gallops. Abdominal exam reveals normal bowel sounds, soft non tender, no masses Extremities are nonedematous and both pedal pulses are present there are no chords, or calf pain and negative pain to SLR Neurologic exam is alert and oriented, no focal loss of strength or sensation Skin is with some redness to the dorsum of feet Psychologically is without concerns for anxiety or depression.. Results & Data Results & Data ([facility]) Vital Signs (Past 12 Hours) Vital Signs Temp Pulse Pulse Resp BP Pulse Ox O2 Del Method 12/29/21 15:22 79 12/29/21 11:55 98.6 F 87 16 123/68 94 Room Air 12/29/21 11:13 Room Air 12/29/21 07:56 98.6 F 68 16 131/65 91 Room Air 12/29/21 07:06 70 PG Care Time/CCT Total # of Minutes Spent Total Time Spent with Patient: Total time spent is greater than 50% in coordination of care (as documented) at patient's floor/unit and/or counseling patient: Coding Level of Care Code 96404 Subseq Hosp Care Lvl 2 Diagnoses Pulmonary embolism I26.99 Acute cor pulmonale presence: unspecified Chronicity: acute Pulmonary embolism type: unspecified Dyslipidemia E78.5 Gastroesophageal reflux disease K21.9 Hypertension I10 Osteoarthritis M19.90 Severe needle phobia F40.231 (1) Pulmonary embolism Acute cor pulmonale presence: unspecified Chronicity: acute Pulmonary embolism type: unspecified Qualified Code(s): I26.99 - Other pulmonary embolism without acute cor pulmonale
[2021-12-29] MEDS ORDERED: predniSONE 20 MG TAB PO ONE (17:00)
[2021-12-30] MEDS: APIXABAN 5 MG TABLET PO SCH ×2 (08:07→21:45)
[2021-12-30] MEDS: LABETALOL HCL 100 MG TAB PO SCH ×2 (08:07→21:45)
[2021-12-30] MEDS: LORATADINE 10 MG TAB PO SCH (08:07)
[2021-12-30] MEDS: ASPIRIN 81 MG ECTAB PO SCH (08:07)
[2021-12-30] MEDS: lisinopril 10 MG TAB PO SCH (08:07)
[2021-12-30] MEDS: predniSONE 20 MG TAB PO SCH (08:07)
[2021-12-30] MEDS: MONTELUKAST SODIUM 10 MG TABLET PO SCH (08:07)
[2021-12-30] MEDS: ATORVASTATIN 40 MG TAB PO SCH (08:07)
[2021-12-30] MEDS: FLUTICASONE PROPIONATE NA SPR 16 GM BTL SCH (08:08)
[2021-12-30] MEDS: traMADol HCL 50 MG TABLET PO PRN ×2 (08:09→20:00)
[2021-12-30] MEDS ORDERED: COLCHICINE 0.6 MG TAB PO ONE (11:13)
--- NOTE | 2021-12-30 15:57 | Hospitalist Progress Note ---
Date of Service December 30, 2021 Assessment & Plan (1) Pulmonary embolism: Plan: 86yo female with a history of HTN, HLD, dissecting thoracic aortic aneurysm, and GERD presents with a two-day history of SOB and productive cough, then found on imaging to have pulmonary emboli. Pulmonary emboli, SOB, cough Patient found on CTA chest with pulmonary emboli does have CTa with right heart strain, with stable vital signs did transition to Eliquis without issue Foot pain possible gout, pt states reminds her of gout, did have elevated uric acid 12/25/21. did not improve with colchicine x3 now slight improvement with steroids, tylenol HTN: PT slightly lower did reduce lisinopril dose, continue labetalol at lower doses and holding lasix, HLD: continue home regimen GERD: continue home regimen FEN: heart-healthy diet Code status: full code PT/OT (2) Dyslipidemia: (3) Gastroesophageal reflux disease: (4) Hypertension: (5) Osteoarthritis: (6) Severe needle phobia: Admission and Anticipated Discharge Date Admission Date: December 25, 2021 Subjective this pt is mostly complaining about her foot pain, with history of gout and elevated uric acid did use some steroids 12/29 with modest improvement no issues with sob or chest pain will need PT/OT Review of Systems Review of Systems: Mild distress and fatigue no headache, no visual changes no speech or swallowing issues no chest pain, pressure or palpitations no shortness of breath, cough or wheezes no abdominal pain, nausea or vomiting, diarrhea or constipation no dysuria, hematuria or frequency despite bunions, pt does not have toe pain but rather pain on top of foot and in ankle area no back pain, CVA tenderness or radicular pain redness of her feet have resolved no focal signs of weakness or numbness or altered sensation no complaints of anxiety or depression.. Physical Exam Physical Exam: The patient appeared well nourished and normally developed. Vital signs as documented. Head exam is normocephalic atraumatic Neck is without JVD, thyromegaly, or carotid bruits. Lungs are clear to auscultation, no focal loss of breath sounds Cardiac exam, Rhythm is regular.. No murmurs, rubs or gallops. Abdominal exam reveals normal bowel sounds, soft non tender, no masses Extremities are nonedematous and both pedal pulses are present there are no chords, or calf pain and negative pain to SLR Neurologic exam is alert and oriented, no focal loss of strength or sensation Skin is with resolution of her redness Psychologically is without concerns for anxiety or depression.. Results & Data Results & Data ([facility]) Vital Signs (Past 12 Hours) Vital Signs Temp Pulse Pulse Resp BP Pulse Ox O2 Del Method 12/30/21 15:10 75 12/30/21 14:59 97.9 F 72 19 155/67 H 94 Room Air 12/30/21 11:37 97.9 F 77 19 160/82 H 96 Room Air 12/30/21 09:07 Room Air 12/30/21 07:48 97.7 F 74 19 130/67 92 Room Air 12/30/21 06:58 76 PG Care Time/CCT Total # of Minutes Spent Total Time Spent with Patient: Total time spent is greater than 50% in coordination of care (as documented) at patient's floor/unit and/or counseling patient: Coding Level of Care Code 86252 Subseq Hosp Care Lvl 2 Diagnoses Pulmonary embolism I26.99 Acute cor pulmonale presence: unspecified Chronicity: acute Pulmonary embolism type: unspecified Dyslipidemia E78.5 Gastroesophageal reflux disease K21.9 Hypertension I10 Osteoarthritis M19.90 Severe needle phobia F40.231 (1) Pulmonary embolism Acute cor pulmonale presence: unspecified Chronicity: acute Pulmonary embolism type: unspecified Qualified Code(s): I26.99 - Other pulmonary embolism without acute cor pulmonale
[2021-12-31] MEDS: predniSONE 20 MG TAB PO SCH (07:34)
[2021-12-31] MEDS: lisinopril 10 MG TAB PO SCH (07:34)
[2021-12-31] MEDS: MONTELUKAST SODIUM 10 MG TABLET PO SCH (07:34)
[2021-12-31] MEDS: GABAPENTIN 100 MG CAP PO PRN (07:35)
[2021-12-31] MEDS: ATORVASTATIN 40 MG TAB PO SCH (07:35)
[2021-12-31] MEDS: LORATADINE 10 MG TAB PO SCH (07:35)
[2021-12-31] MEDS: FLUTICASONE PROPIONATE NA SPR 16 GM BTL SCH (07:37)
[2021-12-31] MEDS: traMADol HCL 50 MG TABLET PO PRN (07:40)
[2021-12-31] MEDS: LABETALOL HCL 100 MG TAB PO SCH ×2 (08:32→20:42)
[2021-12-31] MEDS: ASPIRIN 81 MG ECTAB PO SCH (08:32)
[2021-12-31] MEDS: APIXABAN 5 MG TABLET PO SCH ×2 (08:32→20:41)
[2021-12-31 11:49] LABS: Appearance Urine Turbid (Clear); Bacteria Urine Automated 4+ (Negative); Bilirubin Urine Negative (Negative); Blood Urine 3+ (Negative); Color Urine Yellow; Glucose Urine UA 3+ (Negative); Ketones Urine Negative (Negative); Leukocyte Esterase Urine 3+ (Negative); Nitrite Urine Positive (Negative); Protein Urine Trace (Negative); Specific Gravity Urine 1.019 (1.000-1.030); Urobilinogen Urine Negative (Negative); WBC Urine Automated >30 /hpf (0-5); pH Urine 5.5 (4.5-7.5)
[2021-12-31 12:03] LABS: RBC Urine Automated 0-4 /hpf (0-4)
[2021-12-31 12:04] LABS: Cast Urine Automated 0 /lpf (0-5)
[2021-12-31] MEDS ORDERED: cefTRIAXone SODIUM 2,000 MG in DEXTROSE 5% 50 ML IV STA (12:26)
[2021-12-31] MEDS ORDERED: GLUCAGON FOR INJ 1 MG VIAL SQ PRN (13:42)
[2021-12-31] MEDS ORDERED: GLUCOSE 40% GEL 15 GM TUBE PO PRN (13:42)
[2021-12-31] MEDS ORDERED: CARBOHYDRATES FOR HYPOGLYCEMIA PO PRN (13:42)
[2021-12-31] MEDS ORDERED: DEXTROSE 50% 50 ML SYRINGE IV PRN (13:42)
[2021-12-31] MEDS ORDERED: GLUCOSE 10 TAB/TUBE PO PRN (13:42)
--- NOTE | 2021-12-31 13:47 | Hospitalist Progress Note ---
Date of Service December 31, 2021 Assessment & Plan (1) Pulmonary embolism: Plan: 86yo female with a history of HTN, HLD, dissecting thoracic aortic aneurysm, and GERD presents with a two-day history of SOB and productive cough, then found on imaging to have pulmonary emboli. Pulmonary emboli, SOB, cough Patient found on CTA chest with pulmonary emboli does have CTa with right heart strain, with stable vital signs did transition to Eliquis without issue Foot pain possible gout, pt states reminds her of gout, did have elevated uric acid 12/25/21. did not improve with colchicine x3 now slight improvement with steroids, tylenol dysuria and abn ua, started on rocephin, await culture glucosuria, will check A1c and ssi HTN: PT slightly lower did reduce lisinopril dose, continue labetalol at lower doses and holding lasix, HLD: continue home regimen GERD: continue home regimen FEN: heart-healthy diet Code status: full code PT/OT, biggest issue is her ability to ambulate, and her needle phobia prohibiting lab draws, if she can ambulate will have her home (2) Dyslipidemia: (3) Gastroesophageal reflux disease: (4) Hypertension: (5) Osteoarthritis: (6) Severe needle phobia: Admission and Anticipated Discharge Date Admission Date: December 25, 2021 Subjective Pt is feeling better today less ankle and foot pain did have cloudy foul smelling urine, given rocephin, await culture also elevated glucose will check A1c and SSI Review of Systems Review of Systems: Mild distress and fatigue no headache, no visual changes no speech or swallowing issues no chest pain, pressure or palpitations no shortness of breath, cough or wheezes no abdominal pain, nausea or vomiting, diarrhea or constipation no dysuria, hematuria or frequency despite bunions, pt does not have toe pain but rather pain on top of foot and in ankle area no back pain, CVA tenderness or radicular pain redness of her feet have resolved no focal signs of weakness or numbness or altered sensation no complaints of anxiety or depression.. Physical Exam Physical Exam: The patient appeared well nourished and normally developed. Vital signs as documented. Head exam is normocephalic atraumatic Neck is without JVD, thyromegaly, or carotid bruits. Lungs are clear to auscultation, no focal loss of breath sounds Cardiac exam, Rhythm is regular.. No murmurs, rubs or gallops. Abdominal exam reveals normal bowel sounds, soft non tender, no masses Extremities are nonedematous and both pedal pulses are present there are no chords, or calf pain and negative pain to SLR Neurologic exam is alert and oriented, no focal loss of strength or sensation Skin is with resolution of her redness Psychologically is without concerns for anxiety or depression.. Results & Data Results & Data ([facility]) Vital Signs (Past 12 Hours) Vital Signs Temp Pulse Pulse Resp BP BP Pulse Ox 12/31/21 11:08 97.7 F 70 20 146/82 H 93 12/31/21 07:25 97.5 F L 60 19 133/74 91 12/31/21 07:14 69 12/31/21 03:17 97.3 F L 68 18 145/82 H 94 O2 Del Method 12/31/21 11:08 Room Air 12/31/21 07:25 Room Air 12/31/21 07:14 12/31/21 03:17 Room Air PG Care Time/CCT Total # of Minutes Spent Total Time Spent with Patient: Total time spent is greater than 50% in coordination of care (as documented) at patient's floor/unit and/or counseling patient: Coding Level of Care Code 39117 Subseq Hosp Care Lvl 2 Diagnoses Pulmonary embolism I26.99 Acute cor pulmonale presence: unspecified Chronicity: acute Pulmonary embolism type: unspecified Dyslipidemia E78.5 Gastroesophageal reflux disease K21.9 Hypertension I10 Osteoarthritis M19.90 Severe needle phobia F40.231 (1) Pulmonary embolism Acute cor pulmonale presence: unspecified Chronicity: acute Pulmonary embolism type: unspecified Qualified Code(s): I26.99 - Other pulmonary embolism without acute cor pulmonale
[2021-12-31] MEDS: INSULIN ASPART PER UNIT SC SCH ×2 (14:42→20:48)
[2022-01-01] MEDS: INSULIN ASPART PER UNIT SC SCH ×4 (00:22→20:18)
[2022-01-01] MEDS: traMADol HCL 50 MG TABLET PO PRN (05:45)
[2022-01-01] MEDS: LORATADINE 10 MG TAB PO SCH (08:30)
[2022-01-01] MEDS: ATORVASTATIN 40 MG TAB PO SCH (08:30)
[2022-01-01] MEDS: MONTELUKAST SODIUM 10 MG TABLET PO SCH (08:30)
[2022-01-01] MEDS: FLUTICASONE PROPIONATE NA SPR 16 GM BTL SCH (08:30)
[2022-01-01] MEDS: APIXABAN 5 MG TABLET PO SCH ×2 (08:30→20:06)
[2022-01-01] MEDS: lisinopril 10 MG TAB PO SCH (08:30)
[2022-01-01] MEDS: predniSONE 20 MG TAB PO SCH (08:30)
[2022-01-01] MEDS: ASPIRIN 81 MG ECTAB PO SCH (08:30)
[2022-01-01] MEDS: LABETALOL HCL 100 MG TAB PO SCH ×2 (08:30→20:06)
[2022-01-01] MEDS: ACETAMINOPHEN 500 MG TAB PO PRN (08:33)
--- NOTE | 2022-01-01 12:20 | Discharge Summary ---
Date of Service January 01, 2022 Admission HPI Per Admitting Provider 86yo female with a history of HTN, HLD, dissecting thoracic aortic aneurysm, and GERD presents with a two-day history of SOB and productive cough. Symptoms began suddenly. Cough has been productive of yellow-dwaine sputum. Denies CP with and without inspiration. No additional symptoms. Patient denies fever, chills, headache, vision changes, palpitations, edema, abdominal pain, nausea, vomiting, dysuria, hematochezia, melena, lightheadedness, dizziness, numbness, tingling, weakness, or other symptoms. Denies recent illness and recent travel. Upon arrival, vitals were notable for hypoxia (88%) which improved without need for supplemental oxygen. BP not elevated, no tachycardia or tachypnea. patient afebrile. Initial labs were notable for elevated creatinine (1.3, baseline unknown), elevated ESR (48), elevated CRP (2.15), mild hyperbilirubinemia (1.2), and elevated uric acid (9.3). 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 Surrogate decision-maker in case of an emergency: Shelia Garay (cell: [phone]) Principal Diagnosis Acute pulmonary embolism, E. coli UTI Discharge Exam General-alert and oriented x3, no fevers, no chills HEENT-head atraumatic and normocephalic, pupils equal and reactive to light, extraocular muscles intact Neck-no lymphadenopathy or thyromegaly, trachea midline Chest-clear to auscultation percussion. No rales wheezing or rhonchi Cardiac-regular rate and rhythm, normal S1 and S2, no murmurs Abdomen-normal bowel sounds, nontender, no hepatosplenomegaly Extremities-no cyanosis, clubbing, or edema Neuro-cranial nerves II through XII intact, motor and sensory function within normal limits, strength symmetrical , no focal deficits Psych-normal affect, normal mood Discharge Data Allergies Allergy/AdvReac Type Severity Reaction Status Date / Time clarithromycin Allergy Unknown UNKNOWN Verified 12/25/21 15:26 hydrocodone Allergy Unknown UNKNOWN Verified 12/25/21 15:26 meperidine Allergy Unknown UNKNOWN Verified 12/25/21 15:26 tuberculin, purified protein Allergy Unknown UNKNOWN Verified 12/25/21 15:26 deriva fluticasone furoate Allergy dizziness, Verified 12/25/21 15:26 [From Breo Ellipta] upset stomach vilanterol Allergy dizziness, Verified 12/25/21 15:26 [From Breo Ellipta] upset stomach morphine AdvReac Unknown violent Unverified 12/25/21 15:26 vomiting Consultations 12/25/21 22:42 ED Decision to Admit Stat Ordered Studies 12/25/21 19:57 CT angio abdomen pelvis w con Stat 12/25/21 20:06 CTA chest dissec wo/w con [CT angio chest dissec wo/w con] Stat Hospital Course (1) Pulmonary embolism: 86yo female with a history of HTN, HLD, dissecting thoracic aortic aneurysm, and GERD presents with a two-day history of SOB and productive cough, then found on imaging to have pulmonary emboli. Pulmonary emboli, SOB, cough: Initially treated with heparin infusion and switched to Eliquis without incident . Foot pain possible gout, pt states reminds her of gout, did have elevated uric acid 12/25/21. did not improve with colchicine x3 now slight improvement with steroids, tylenol dysuria and abn ua, started on rocephin, await culture glucosuria, will check A1c and ssi HTN: PT slightly lower did reduce lisinopril dose, continue labetalol at lower doses and holding lasix, HLD: continue home regimen GERD: continue home regimen FEN: heart-healthy diet Code status: full code PT/OT, biggest issue is her ability to ambulate, and her needle phobia prohibiting lab draws, if she can ambulate will have her home (2) Dyslipidemia: Medical management. Low-cholesterol diet (3) Gastroesophageal reflux disease: Stable with medical management (4) Hypertension: Lisinopril and labetalol dosages down titrated this admission. Stable (5) Osteoarthritis: Stable with medical management (6) Severe needle phobia: Aware (7) UTI (urinary tract infection): E. coli isolated. Treated with intravenous Rocephin while hospitalized. Home on oral Keflex for a few more days Plan The patient refuses placement. She will be discharged back to home with her daughter. Home health services have been requested. Total Time Total Time Spent Total Time Spent (In Minutes): 35 minutes Discharge Plan Discharge Items Patient Disposition: Home - Home Health Services Reason For Visit: PULMONARY EMBOLI Discharge Diagnosis: Acute pulmonary embolism, E. coli UTI (uncomplicated) Activity: Resume your previous activity Non-emergency contact: Primary Care Provider Call non-emergency contact if: you have any medication questions Follow-up/Referrals: Dalila Vitale DO [Primary Care Provider] - Diet: Heart Healthy Addtl Attending Provider Instructions: Eliquis is the new blood thinner for pulmonary embolism. Your primary care provider will will determine the length of Eliquis treatment. Take Keflex until gone to treat the urinary tract infection. Lisinopril and labetalol dosages have been decreased Pending Studies at Discharge: No Stand-Alone Forms: My [facility], Smoking Cessation Medications and DC Order Prescriptions: New Eliquis 5 mg Tablet 5 mg PO BID Qty: 30 0RF labetalol 100 mg Tablet 100 mg PO BID Qty: 60 0RF lisinopril 10 mg Tablet 10 mg PO DAILY Qty: 30 0RF cephalexin 250 mg capsule 250 mg PO TID Qty: 9 0RF Continued albuterol sulfate [Ventolin HFA] 90 mcg/actuation HFA aerosol inhaler See Rx Instructions inhalation .COMPLEX PRN (Reason: shortness of breath or wheezing) Qty: 8.5 3RF Dose Instruction: 1-2 inhalation EVERY 4-6 HOURS PRN; Rx Instructions: 1-2 inhalation EVERY 4-6 HOURS PRN; furosemide [Lasix] 20 mg tablet 20 mg PO DAILY Qty: 90 1RF atorvastatin 40 mg tablet 40 mg PO DAILY Qty: 90 1RF aspirin [Adult Low Dose Aspirin] 81 mg tablet,delayed release (DR/EC) 81 mg PO DAILY Qty: 30 2RF calcium carbonate-vitamin D3 [Calcium 600 + D(3)] 600 mg(1,500mg) -200 unit tablet 1 tab PO DAILY Qty: 30 0RF loratadine 10 mg tablet 10 mg PO DAILY Qty: 30 0RF multivitamin with iron tablet 1 tab PO DAILY Qty: 30 0RF acetaminophen [Tylenol Extra Strength] 500 mg tablet 1,000 mg PO TID PRN (Reason: fever) Qty: 30 0RF montelukast [Singulair] 10 mg tablet 10 mg PO DAILY Qty: 90 3RF gabapentin 100 mg capsule 200 mg PO TID PRN (Reason: pain) Qty: 540 1RF tramadol 50 mg tablet 50 mg PO Q8H PRN (Reason: pain) Qty: 30 0RF fluticasone propionate [Flonase Allergy Relief] 50 mcg/actuation spray,suspension 2 spray INTNAS DAILY Qty: 16 1RF Rx Instructions: administer into each nostril cholecalciferol (vitamin D3) 25 mcg (1,000 unit) capsule 2,000 unit PO DAILY Qty: 60 3RF diclofenac sodium 1 % gel 2 g topical QID PRN (Reason: Pain) Rx Instructions: apply to single elbow, wrist or hand; for hand includes palm/fingers/back of hand Discontinued lisinopril 40 mg tablet 40 mg PO DAILY Qty: 90 1RF labetalol 200 mg tablet 400 mg PO BID 90 Days Qty: 360 1RF Discharge Orders: Discharge Order (Routine); Ordered 01/01/22 Ordered By: Ortiz Gupta Admission Data Admit Date/Time: 12/25/21 23:57 Attending Provider: Ortiz Gupta Admit Provider: Rubén Grant Primary Care Provider: Dalila Vitale. Other Providers: Judy Lerner Coding Level of Care Code D/C DAY MANAGEMENT >30 MINS Diagnoses Pulmonary embolism I26.99 Acute cor pulmonale presence: unspecified Chronicity: acute Pulmonary embolism type: unspecified Dyslipidemia E78.5 Gastroesophageal reflux disease K21.9 Hypertension I10 Osteoarthritis M19.90 Severe needle phobia F40.231 UTI (urinary tract infection) N39.0
--- NOTE | 2022-01-01 12:51 | Hospitalist Progress Note ---
Date of Service January 01, 2022 Assessment & Plan (1) Pulmonary embolism: Plan: 86yo female with a history of HTN, HLD, dissecting thoracic aortic aneurysm, and GERD presents with a two-day history of SOB and productive cough, then found on imaging to have pulmonary emboli. Pulmonary emboli, SOB, cough: Initially treated with heparin infusion and switched to Eliquis without incident . Foot pain possible gout, pt states reminds her of gout, did have elevated uric acid 12/25/21. did not improve with colchicine x3 now slight improvement with steroids, tylenol FEN: heart-healthy diet Code status: full code PT/OT, biggest issue is her ability to ambulate, and her needle phobia prohibiting lab draws, if she can ambulate will have her home L (2) Dyslipidemia: Plan: Medical management. Low-cholesterol diet (3) Gastroesophageal reflux disease: Plan: Stable with medical management (4) Hypertension: Plan: Lisinopril and labetalol dosages down titrated this admission. Stable (5) Osteoarthritis: Plan: Stable with medical management (6) Severe needle phobia: Plan: Aware (7) UTI (urinary tract infection): Plan: E. coli isolated. Treated with intravenous Rocephin while hospitalized. Discharge on oral Keflex for a few more days Plan The patient was going to be discharged home but now she requests IPR placement. Case management aware. Admission and Anticipated Discharge Date Admission Date: December 25, 2021 Subjective The patient was going to go home today, January 01, then changed her mind and she wants to go to inpatient rehabilitation. Case management is aware. Review of Systems Review of Systems: Constitutional-no fever or chills ENT-no blurred vision, no double vision, no epistaxis, no sore throat Respiratory-no cough, no wheezing, no shortness of breath Cardiac-no palpitations, no chest pain, no syncope GI-no nausea, vomiting, diarrhea, melena, hematochezia -no urinary retention, no urinary incontinence, no dysuria, no hematuria Musculoskeletal-no joint pain, no muscle tenderness Skin-no bruising, no rashes, no pruritus Neuro-no isolated weakness, no paresthesia. Generalized weakness limiting ambulatory capacity Psych-no depression, no anxiety Physical Exam Physical Exam: General-alert and oriented x3, no fevers, no chills HEENT-head atraumatic and normocephalic, pupils equal and reactive to light, extraocular muscles intact Neck-no lymphadenopathy or thyromegaly, trachea midline Chest-clear to auscultation percussion. No rales wheezing or rhonchi Cardiac-regular rate and rhythm, normal S1 and S2, no murmurs Abdomen-normal bowel sounds, nontender, no hepatosplenomegaly Extremities-no cyanosis, clubbing, or edema Neuro-cranial nerves II through XII intact, motor and sensory function within normal limits, strength symmetrical with generalized weakness, no focal deficits Psych-normal affect, normal mood Results & Data Results & Data ([facility]) Vital Signs (Past 12 Hours) Vital Signs Temp Pulse Pulse Resp BP BP Pulse Ox 01/01/22 07:58 36.7 C 67 16 165/78 H 94 01/01/22 07:26 60 01/01/22 02:43 36.7 C 66 18 162/80 H 96 01/01/22 01:05 69 O2 Del Method 01/01/22 07:58 Room Air 01/01/22 07:26 01/01/22 02:43 Room Air 01/01/22 01:05 Laboratory Results 12/26/21 05:56 12/26/21 05:56 PG Care Time/CCT Total # of Minutes Spent Total Time Spent with Patient: Total time spent is greater than 50% in coordination of care (as documented) at patient's floor/unit and/or counseling patient: Coding Level of Care Code 11383 Subseq Hosp Care Lvl 3 Diagnoses Pulmonary embolism I26.99 Acute cor pulmonale presence: unspecified Chronicity: acute Pulmonary embolism type: unspecified Dyslipidemia E78.5 Gastroesophageal reflux disease K21.9 Hypertension I10 Osteoarthritis M19.90 Severe needle phobia F40.231 UTI (urinary tract infection) N39.0 (1) Pulmonary embolism Acute cor pulmonale presence: unspecified Chronicity: acute Pulmonary emboli sm type: unspecified Qualified Code(s): I26.99 - Other pulmonary embolism without acute cor pulmonale
[2022-01-02] MEDS: INSULIN ASPART PER UNIT SC SCH ×3 (08:23→13:39)
[2022-01-02] MEDS: ATORVASTATIN 40 MG TAB PO SCH (08:24)
[2022-01-02] MEDS: ASPIRIN 81 MG ECTAB PO SCH (08:24)
[2022-01-02] MEDS: FLUTICASONE PROPIONATE NA SPR 16 GM BTL SCH (08:24)
[2022-01-02] MEDS: LABETALOL HCL 100 MG TAB PO SCH (08:25)
[2022-01-02] MEDS: lisinopril 10 MG TAB PO SCH (08:25)
[2022-01-02] MEDS: LORATADINE 10 MG TAB PO SCH (08:25)
[2022-01-02] MEDS: predniSONE 20 MG TAB PO SCH (08:26)
[2022-01-02] MEDS: MONTELUKAST SODIUM 10 MG TABLET PO SCH (08:26)
[2022-01-02] MEDS ORDERED: APIXABAN 5 MG TABLET PO SCH (09:00)
[2022-01-02] MEDS ORDERED: lisinopril 10 MG TAB PO ONE (09:15)
--- NOTE | 2022-01-02 09:16 | Hospitalist Progress Note ---
Date of Service January 02, 2022 Assessment & Plan (1) Pulmonary embolism: Plan: Attending: Dr. Soriano impression: 86yo female with a history of HTN, HLD, dissecting thoracic aortic aneurysm, and GERD presents with a two-day history of SOB and productive cough, then found on imaging to have pulmonary emboli.Pulmonary status is stable.She is saturating at 94% on room air. Pulmonary emboli: Extensive right-sided pulmonary emboli, including emboli within the right pulmonary artery. CT findings suggestive of right heart strain. Hemodynamically stable. Has been successfully transitioned from heparin drip to apixaban5 mg p.o. twice daily Foot pain possible gout, pt states reminds her of gout, did have elevated uric acid 12/25/21. did not improve with colchicine x3 now slight improvement with steroids, tylenol FEN: heart-healthy diet Code status: full code PT/OT, biggest issue is her ability to ambulate, and her needle phobia pr ohibiting lab draws, if she can ambulate will have her home (2) Dyslipidemia: Plan: Medical management. Low-cholesterol diet Continue atorvastatin Outpatient management (3) Gastroesophageal reflux disease: Plan: Not on PPI or H2 mainor at home Currently on prednisone 20 mg p.o. daily Will start famotidine daily (4) Hypertension: Plan: Outpatient hypertensives included labetalol 200 mg p.o. twice daily as well as lisinopril 40 mg daily On admission, patient had some hypotension. Medications were adjusted Patient does have some hypertension today with a systolic pressure in the 150s and 160s. Will keep labetalol 100 mg p.o. twice daily and increase the lisinopril from 10 mg p.o. daily to 20 mg p.o. daily Follow vital signs per protocol in anticipation of transfer [facility] (5) Osteoarthritis: Plan: Continue calcium carbonate 600 mg with vitamin D3 on discharge Further management outpatient (6) Severe needle phobia: Plan: Aware (7) UTI (urinary tract infection): Plan: E. coli isolated. Treated with intravenous Rocephin while hospitalized. Discharge on oral Keflex for a few more days Check CBC this morning as well as procalcitonin Plan Referral made to [facility]. Medically stable for discharge Admission and Anticipated Discharge Date Admission Date: December 25, 2021 Results & Data Results & Data ([facility]) Vital Signs (Past 12 Hours) Vital Signs Temp Pulse Pulse Resp BP BP Pulse Ox 01/02/22 07:44 36.9 C 64 18 158/78 H 94 01/02/22 07:15 61 01/02/22 04:58 36.5 C 63 20 152/74 H 95 01/01/22 22:00 36.6 C 64 20 124/73 97 O2 Del Method 01/02/22 07:44 Room Air 01/02/22 07:15 01/02/22 04:58 Room Air 01/01/22 22:00 Room Air PG Care Time/CCT Total # of Minutes Spent Total Time Spent with Patient: Total time spent is greater than 50% in coordination of care (as documented) at patient's floor/unit and/or counseling patient: Coding Diagnoses Pulmonary embolism I26.99 Acute cor pulmonale presence: unspecified Chronicity: acute Pulmonary embolism type: unspecified Dyslipidemia E78.5 Gastroesophageal reflux disease K21.9 Hypertension I10 Osteoarthritis M19.90 Severe needle phobia F40.231 UTI (urinary tract infection) N39.0 (1) Pulmonary embolism Acute cor pulmonale presence: unspecified Chronicity: acute Pulmonary embolism type: unspecified Qualified Code(s): I26.99 - Other pulmonary embolism without acute cor pulmonale
[2022-01-02] MEDS ORDERED: cephALEXin 500 MG CAP PO SCH (11:15)
--- NOTE | 2022-01-02 14:40 | Discharge Summary ---
Date of Service January 02, 2022 Admission HPI Per Admitting Provider 86yo female with a history of HTN, HLD, dissecting thoracic aortic aneurysm, and GERD presents with a two-day history of SOB and productive cough. Symptoms began suddenly. Cough has been productive of yellow-dwaine sputum. Denies CP with and without inspiration. No additional symptoms. Patient denies fever, chills, headache, vision changes, palpitations, edema, abdominal pain, nausea, vomiting, dysuria, hematochezia, melena, lightheadedness, dizziness, numbness, tingling, weakness, or other symptoms. Denies recent illness and recent travel. Upon arrival, vitals were notable for hypoxia (88%) which improved without need for supplemental oxygen. BP not elevated, no tachycardia or tachypnea. patient afebrile. Initial labs were notable for elevated creatinine (1.3, baseline unknown), elevated ESR (48), elevated CRP (2.15), mild hyperbilirubinemia (1.2), and elevated uric acid (9.3). 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 Surrogate decision-maker in case of an emergency: Shelia Garay (cell: [phone]) Admission Exam Per Admitting Provider Constitutional: well-appearing, no acute distress HEENT: NCAT, no conjunctival injection CV: regular rhythm, no murmur appreciated, extremities well-perfused, no LE edema Resp: CTABL, no wheezes/rales/rhonchi appreciated, no increased work of breathing GI: soft, nondistended, nontender, BS normoactive MSK: no gross deformities appreciated Skin: warm, dry, no rash appreciated Neuro: alert, oriented, no focal neurologic deficit appreciated Principal Diagnosis Pulmonary emboli Discharge Exam Constitutional: Vital signs as above were reviewed. Eyes: Pupils equal, round, and reactive to light. ENT: Mucous membranes are moist. Oropharynx is clear. Cardiovascular: Heart with a regular rate and rhythm. Respiratory: Lungs clear to auscultation bilaterally. No wheezes, rales, or rhonchi appreciated. No increased work of breathing. GI: Abdomen soft, nontender, nondistended. Normal active bowel sounds. No abdominal hernias appreciated. No rebound. No guarding. : No CVA tenderness appreciated. Musculoskeletal: No midline cervical or vertebral tenderness. Integumentary: Warm, dry, no rashes appreciated. Neurological: Patient awake, alert, and oriented x 3. Nonfocal examination. Discharge Data Allergies Allergy/AdvReac Type Severity Reaction Status Date / Time clarithromycin Allergy Unknown UNKNOWN Verified 12/25/21 15:26 hydrocodone Allergy Unknown UNKNOWN Verified 12/25/21 15:26 meperidine Allergy Unknown UNKNOWN Verified 12/25/21 15:26 tuberculin, purified protein Allergy Unknown UNKNOWN Verified 12/25/21 15:26 deriva fluticasone furoate Allergy dizziness, Verified 12/25/21 15:26 [From Breo Ellipta] upset stomach vilanterol Allergy dizziness, Verified 12/25/21 15:26 [From Breo Ellipta] upset stomach morphine AdvReac Unknown violent Unverified 12/25/21 15:26 vomiting Consultations 12/25/21 22:42 ED Decision to Admit Stat Ordered Studies 12/25/21 19:57 CT angio abdomen pelvis w con Stat 12/25/21 20:06 CTA chest dissec wo/w con [CT angio chest dissec wo/w con] Stat CT ANGIOGRAPHY OF THE CHEST DISSECTION PROTOCOL CLINICAL HISTORY: Chest pain. Possible dissection or pulmonary embolus. COMPARISON STUDY: Chest radiograph performed earlier today. Chest CT January 02, 2011. TECHNIQUE: Before and following the IV administration of 114 mL of Optiray, helical axial images of the chest were obtained. Maximal intensity projections and sagittal and coronal reformats were viewed on an independent 3D workstation. IV contrast was administered without complication. Automated exposure control was utilized for the study. A dose lowering technique was utilized adhering to the principles of ALARA. CT DOSE: 1849.01 mGy.cm FINDINGS: There is no thoracic aortic dissection. Intramural hematoma shown on CT of January 02, 2011 has resolved. Moderate cardiomegaly is noted. There is no pericardial effusion. Note is made of extensive right-sided pulmonary emboli, including emboli within the right pulmonary artery. These emboli extending into the lobar and segmental branches of the right lung. Emboli are suboptimally assessed given suboptimal opacification. There is dilatation the right ventricle with straightening of the interventricular septum. This suggests right heart strain. No pneumothorax or pleural effusion is present. No pulmonary infarct is present. Subpleural opacities favor atelectasis. No acute fracture within the bony thorax. Abdomen and pelvis will be reported separately. IMPRESSION: 1. Extensive right-sided pulmonary emboli, including emboli within the right pulmonary artery. CT findings suggestive of right heart strain. 2. No thoracic aortic dissection. ACT 112: Negative or not required by law. Electronically signed by: Jefe Carvalho M.D. 12/26/2021 10:30 AM Hospital Course (1) Pulmonary embolism: Attending: Dr. Soriano Impression: 86yo female with a history of HTN, HLD, dissecting thoracic aortic aneurysm, and GERD presents with a two-day history of SOB and productive cough, then found on imaging to have pulmonary emboli.Pulmonary status is stable.She is saturating at 94% on room air. Pulmonary emboli: Extensive right-sided pulmonary emboli, including emboli within the right pulmonary artery. CT findings suggestive of right heart strain. Hemodynamically stable. Has been successfully transitioned from heparin drip to apixaban5 mg p.o. twice daily Dyslipidemia: Medical management. Low-cholesterol diet Continue atorvastatin Outpatient management Gastroesophageal reflux disease: Not on PPI or H2 mainor at home Currently on prednisone 20 mg p.o. daily Will start famotidine daily Hypertension: Outpatient hypertensives included labetalol 200 mg p.o. twice daily as well as lisinopril 40 mg daily On admission, patient had some hypotension. Medications were adjusted Patient does have some hypertension today with a systolic pressure in the 150s and 160s. Will keep labetalol 100 mg p.o. twice daily and increase the lisinopril from 10 mg p.o. daily to 20 mg p.o. daily Follow vital signs per [facility] Osteoarthritis: Continue calcium carbonate 600 mg with vitamin D3 on discharge Further management outpatient Severe needle phobia: Aware UTI (urinary tract infection): E. coli isolated. Treated with intravenous Rocephin while hospitalized. Discharge on oral Keflex for a few more days CBC stable this morning Afebrile No complaints Foot pain possible gout, pt states reminds her of gout, did have elevated uric acid 12/25/21. did not improve with colchicine x3 now slight improvement with steroids, tylenol Outpatient management FEN: heart-healthy diet Code status: full code PT/OT, biggest issue is her ability to ambulate, and her needle phobia prohibiting lab draws Family is confident that they can manage her at home with home health on board (2) Severe needle phobia: Aware (3) UTI (urinary tract infection): E. coli isolated. Treated with intravenous Rocephin while hospitalized. Discharge on oral Keflex for a few more days Check CBC this morning as well as procalcitonin Plan Medically stable for discharge Total Time Total Time Spent Total Time Spent (In Minutes): 40 Discharge Plan Discharge Items Patient Disposition: Home - Home Health Services Reason For Visit: PULMONARY EMBOLI Discharge Diagnosis: Acute pulmonary embolism, E. coli UTI (uncomplicated) Activity: Resume your previous activity Lifting: Gradually increase as tolerated Bathing: No limitations Exercise/Sports: Gradually increase as tolerated Weightbearing: Full weightbearing Non-emergency contact: Primary Care Provider Call non-emergency contact if: you have any medication questions Follow-up/Referrals: Dalila Vitale DO [Primary Care Provider] - 01/13/22 9:20 am Diet: Heart Healthy Addtl Attending Provider Instructions: Eliquis is the new blood thinner for pulmonary embolism. Due to age and unknown cause of clots and weight, you should be on anticoagulation for life. You should be aware that there is increased risk of bleeding while on anticoagulation. You should discuss risk factors with your family doctor on a regular basis to determine if you should ever stop this medication. Take Keflex until gone to treat the urinary tract infection. Lisinopril and labetalol dosages have been decreased. New prescriptions will be sent to your pharmacy. Pending Studies at Discharge: No Stand-Alone Forms: My [facility], Smoking Cessation Medications and DC Order Prescriptions: New Eliquis 5 mg Tablet 5 mg PO BID Qty: 30 0RF cephalexin 250 mg capsule 250 mg PO TID Qty: 9 0RF lisinopril 10 mg tablet 10 mg PO DAILY Qty: 30 2RF Continued albuterol sulfate [Ventolin HFA] 90 mcg/actuation HFA aerosol inhaler See Rx Instructions inhalation .COMPLEX PRN (Reason: shortness of breath or wheezing) Qty: 8.5 3RF Dose Instruction: 1-2 inhalation EVERY 4-6 HOURS PRN; Rx Instructions: 1-2 inhalation EVERY 4-6 HOURS PRN; furosemide [Lasix] 20 mg tablet 20 mg PO DAILY Qty: 90 1RF atorvastatin 40 mg tablet 40 mg PO DAILY Qty: 90 1RF aspirin [Adult Low Dose Aspirin] 81 mg tablet,delayed release (DR/EC) 81 mg PO DAILY Qty: 30 2RF calcium carbonate-vitamin D3 [Calcium 600 + D(3)] 600 mg(1,500mg) -200 unit tablet 1 tab PO DAILY Qty: 30 0RF loratadine 10 mg tablet 10 mg PO DAILY Qty: 30 0RF multivitamin with iron tablet 1 tab PO DAILY Qty: 30 0RF acetaminophen [Tylenol Extra Strength] 500 mg tablet 1,000 mg PO TID PRN (Reason: fever) Qty: 30 0RF montelukast [Singulair] 10 mg tablet 10 mg PO DAILY Qty: 90 3RF gabapentin 100 mg capsule 200 mg PO TID PRN (Reason: pain) Qty: 540 1RF tramadol 50 mg tablet 50 mg PO Q8H PRN (Reason: pain) Qty: 30 0RF fluticasone propionate [Flonase Allergy Relief] 50 mcg/actuation spray,suspension 2 spray INTNAS DAILY Qty: 16 1RF Rx Instructions: administer into each nostril cholecalciferol (vitamin D3) 25 mcg (1,000 unit) capsule 2,000 unit PO DAILY Qty: 60 3RF diclofenac sodium 1 % gel 2 g topical QID PRN (Reason: Pain) Rx Instructions: apply to single elbow, wrist or hand; for hand includes palm/fingers/back of hand labetalol 200 mg Tablet 200 mg PO BID Discontinued lisinopril 40 mg tablet 40 mg PO DAILY Qty: 90 1RF Discharge Orders: Discharge Order (Routine); Ordered 01/02/22 Ordered By: Jarod Matthews/Other Patient Handouts: Pulmonary Embolism, What Is Gout? Admission Data Admit Date/Time: 12/25/21 23:57 Attending Provider: Ortiz Gupta Admit Provider: Rubén Grant Primary Care Provider: Dalila Vitale Other Providers: Judy Lerner ; [facility] ; [facility] ; [facility],Home Healthcare Other Interventions: Discharge Summary Assessment (RN) Last Done: 01/02/22 14:29 Supervising Physician Co-Signing Physician Notes I personally examined the patient and verified all maldonado points of history and exam, discussed case, and agree with decision making with Shanell FENTON Feels up to going home. Discussed VTE and chronic management. Vitals noted, in general she is in no distress breathing unlabored no accessory muscle use good effort. Skin shows no rashes no pallor or icterus. PEanticoagulation. Stable for home. Outpatient follow-up. Coding Level of Care Code D/C DAY MANAGEMENT >30 MINS Diagnoses Pulmonary embolism I26.99 Acute cor pulmonale presence: unspecified Chronicity: acute Pulmonary embolism type: unspecified Severe needle phobia F40.231 UTI (urinary tract infection) N39.0 Home Health Attestation I certify that this patient is under my care and that I, or a physicians assistant project engineer working with me, had a face to-face encounter that meets the home health [id number] encounter requirements with this patient. The encounter with the patient was in whole, or in part, for the following medical condition, which is the primary reason for home health care (list medical condition): I certify that, based on my findings, the following services are medically necessary home health services: My clinical findings support the need for the above services because: PT Assessment for Endurance / Balance / Strength Skilled Nsg Assessment Further, I certify that my clinical findings support that this patient is homebound (i.e. absences from home require considerable and taxing effort and are for medical reasons or yarsani services or infrequently or of short duration when for other reasons) because: Certification for Home Health Services: Based on the above findings, I certify that this patient is confined to the home and needs intermittent residential care, physical therapy and/or speech therapy or continues to need occupational therapy. The patient is under my care, and I have initiated the establishment of the plan of care. This patient will be followed by a physician who will periodically review the plan of care.
[2022-01-03] MEDS ORDERED: lisinopril 10 MG TAB PO SCH (09:00)
== END 2022-01-02 15:00 | disposition home health service (06) | DRG 176 ==
LOC: ED 16:56 → SUATTDRO 23:57 → EDINP 23:57 → 2N 12-26 14:52